=== PATIENT | female | born 1950 | race Caucasian/White ===

== ENCOUNTER → 2018-03-16 14:12 | Outpatient (CLI) | payer MEDICARE, BC, SELFPAY ==
[2018-03-16 14:28] LABS: RBC Urine None Seen (0-5/HPF)
[2018-03-16 15:31] LABS: BUN Creatinine Ratio 18.8 (6-22); Blood Urea Nitrogen 15 mg/dL (7-17); Calcium 9.5 mg/dL (8.4-10.2); Carbon Dioxide 28 mmol/L (22-32); Chloride 102 mmol/L (98-107); Estimated Glomerular Filt Rate > 60.0 mL/min (>60); Glucose 94 mg/dL (80-110); HEMOLYSIS < 15 (0-50); Hemoglobin A1C% w Est Avg Glu 5.3 % (4.0-6.0); Potassium 3.8 mmol/L (3.4-5.1); Sodium 142 mmol/L (137-145)
[2018-03-16 15:39] LABS: Appearance Urine UA CLEAR; Bilirubin Urine UA NEGATIVE (NEGATIVE); Color Urine UA YELLOW; Glucose Urine UA NEGATIVE (Normal); Ketones Urine UA NEGATIVE (NEGATIVE); Leukocyte Esterase Urine UA NEGATIVE (NEGATIVE); Nitrite Urine UA NEGATIVE (Negative); Occult Blood Urine UA NEGATIVE (Negative); Protein Urine UA NEGATIVE (Negative); Specific Gravity Urine UA 1.025 (1.000-1.035); Urobilinogen Urine UA 0.2 E.U./dL (0.2); pH Urine UA 5.5 (4.5-8.0)
[2018-03-16 15:59] LABS: Add Manual Diff / Slide Review NO; Basophils Percent Auto 0.5 % (0-2); Eosinophils Percent Auto 0.4 % (2-4); Hematocrit 44.4 % (36-46); Hemoglobin 14.9 g/dL (12.0-16.0); Lymphocytes Percent Auto 23.8 % (25-40); Mean Corpuscular HGB Conc 33.4 % (30-36); Mean Corpuscular Volume 86.9 fL (80-100); Monocytes Percent Auto 7.7 % (3-14); Neutrophils Absolute Auto 3500 /uL (3000-5900); Neutrophils Percent Auto 67.6 % (50-75); Platelet Count 238 X10^3/uL (150-400); Red Blood Cell Count 5.12 X10^6/uL (4.0-5.2); Red Cell Distribution Width 14.8 % (11.6-14.8); White Blood Cell Count 5.2 X10^3/uL (4.5-11.0)
[2018-03-16 16:26] LABS: Amorphous Sediment Urine 1+; Bacteria Urine Few (2-10); Squamous Epithelial Cell Urine 5-10 /HPF; WBC Urine 1-5/HPF (0-5/HPF)
[2018-03-16 16:27] LABS: Culture Indicated Urine Cult Not Indicated; Mucus Urine 1+ (Negative)
== END ==
PROVIDERS: PCP Family Medicine; Visit Provider Orthopaedic Surgery
DX: Z01.818 Encounter for other preprocedural examination (principal); Z01.812 Encounter for preprocedural laboratory examination; N39.9 Disorder of urinary system, unspecified; Z13.1 Encounter for screening for diabetes mellitus
CPT/HCPCS: 36415; 80048; 81001; 83036; 85025; 93005; 93010

== ENCOUNTER → 2018-04-17 09:01 | Outpatient (CLI) | payer MEDICARE, BC, SELFPAY ==
--- NOTE | 2018-04-17 13:36 | PM.TREADMILL ---
Cardiac Stress Test Report Referral & Results Date Patient Seen: 04/17/18 Requesting provider: Lexx Woodward Indication: Abnormal resting ECG Procedure Note: After both written and verbal informed consent the patient had an IV started by the diagnostic imaging RN and then was hooked up to the treadmill monitoring system. The patient was placed on the treadmill at 1 mile an hour with no elevation and was then injected with the Mary scan material. The Cardiolite was then immediately administered. The patient spent an additional 2-3 minutes on the treadmill before being returned to the [facility] in the supine position. The patient had a normal response to all infused materials. Impression: Normal response to infuse materials Please see perfusion imaging for details regarding possible ischemia Please note: Actual ECG tracings can be found in the PACS system.
--- NOTE | 2018-04-18 06:38 | DI.NM.S_ITS ---
DATE OF SERVICE: 04/17/2018 PROCEDURE: Pharmacologic perfusion study. INDICATIONS: Abnormal EKG suggestive of anterior wall, inferior wall myocardial infarction ([place]); hyperlipidemia; family history of coronary artery disease. RADIOPHARMACEUTICAL: 25.2 mCi of technetium-99 Myoview IV was injected at stress, and 12.0 mCi of technetium-99 Myoview IV was injected at rest. CARDIAC STRESS: The patient underwent IV Lexiscan perfusion study under the supervision of an attending staff using standard protocol. The patient remained hemodynamically stable. No significant symptoms were reported. Baseline rhythm was sinus with diffuse low-voltage complexes, poor R-wave progression, QS complexes in Lead III and aVF, an RSR' complex in V1. Stress EKG did not reveal any obvious inducible ischemic changes. There were no new significant arrhythmias. RAW DATA: There was significant breast shadow seen. The patient's weight is 212 pounds. GATED STUDY: Stress LV ejection fraction was 87%. I do not see any obvious wall motion abnormalities. Resting end-diastolic volume was 72 mL. No transient ischemic dilatation. TID ratio is 1.08, which is within normal limits. Lung/heart ratio is 0.24, which is within normal limits. PERFUSION STUDY: Stress supine and resting supine images revealed a small-sized mildly decreased perfusion of the distal anterior lateral wall, which got completely resolved during prone images, suggestive of tissue attenuation artifact. CONCLUSION: This is a normal myocardial perfusion study with evidence of tissue attenuation artifact which got resolved during prone images. LV function is preserved. No wall motion abnormalities. The patient's weight is 212 pounds. During raw data, significant breast shadow was seen. Most likely, this breast shadow is responsible for abnormal EKG changes with diffuse low-voltage complexes and poor R-wave progression. QS complexes seen in Lead III, aVF; however, on perfusion scan there is no infarction. As far as perfusion scan is concerned, this is a low-risk myocardial perfusion scan. Alise David - MARCELA/addis/ts doc#: [id number]/job#: [id number] dd: 04/17/2018 16:34:00 dt: 04/18/2018 06:17:00 DICTATING MD/COPIES TO: Liu Garcia MD COPIES MNE: MARYCARMEN
== END ==
PROVIDERS: PCP Family Medicine; Visit Provider Family Medicine
DX: R94.31 Abnormal electrocardiogram [ECG] [EKG] (principal); E78.5 Hyperlipidemia, unspecified; Z82.49 Family history of ischemic heart disease and other diseases of the circulatory system
CPT/HCPCS: 78452; 93016; 93017; 93018; A9502; J2785

== ENCOUNTER → 2018-06-22 10:43 | Outpatient (CLI) | payer MEDICARE, BC, SELFPAY ==
[2018-06-22 10:54] LABS: RBC Urine None Seen (0-5/HPF)
[2018-06-22 11:29] LABS: Hematocrit 43.2 % (36-46); Hemoglobin 14.3 g/dL (12.0-16.0); Mean Corpuscular HGB Conc 33.2 % (30-36); Mean Corpuscular Hemoglobin 28.7 PG (26-34); Mean Corpuscular Volume 86.4 fL (80-100); Platelet Count 210 X10^3/uL (150-400); Red Cell Distribution Width 14.5 % (11.6-14.8)
[2018-06-22 11:38] LABS: Hemoglobin A1C% w Est Avg Glu 5.2 % (4.0-6.0)
[2018-06-22 12:01] LABS: BUN Creatinine Ratio 26.7 (6-22); Blood Urea Nitrogen 16 mg/dL (7-17); Calcium 9.5 mg/dL (8.4-10.2); Carbon Dioxide 26 mmol/L (22-32); Chloride 102 mmol/L (98-107); Estimated Glomerular Filt Rate > 60.0 mL/min (>60); Glucose 73 mg/dL (80-110); HEMOLYSIS < 15 (0-50); Potassium 4.3 mmol/L (3.4-5.1); Sodium 138 mmol/L (137-145)
[2018-06-22 12:24] LABS: Appearance Urine UA CLEAR; Bilirubin Urine UA NEGATIVE (NEGATIVE); Color Urine UA YELLOW; Glucose Urine UA NEGATIVE (Negative); Ketones Urine UA NEGATIVE (NEGATIVE); Leukocyte Esterase Urine UA NEGATIVE (NEGATIVE); Nitrite Urine UA NEGATIVE (Negative); Occult Blood Urine UA NEGATIVE (Negative); Protein Urine UA NEGATIVE (Negative); Specific Gravity Urine UA 1.025 (1.000-1.035); Urobilinogen Urine UA 0.2 E.U./dL (0.2); pH Urine UA 5.5 (4.5-8.0)
[2018-06-22 12:33] LABS: Bacteria Urine Occasional (0-1); Culture Indicated Urine Cult Not Indicated; Squamous Epithelial Cell Urine 1-5 /HPF; WBC Urine 0-1/HPF (0-5/HPF)
== END ==
PROVIDERS: PCP Family Medicine; Visit Provider Orthopaedic Surgery
DX: N39.0 Urinary tract infection, site not specified (principal); R73.9 Hyperglycemia, unspecified; Z01.818 Encounter for other preprocedural examination
CPT/HCPCS: 36415; 80048; 81001; 83036; 85027

== ENCOUNTER 2018-07-08 09:30 | Observation (INO) | payer MEDICARE, BC, SELFPAY ==
[2018-07-01 10:47] VITALS: BMI 36.0
[2018-07-07] VITALS (15 sets, daily range): BP systolic 118–145; BP diastolic 60–98; PULSE 75–97; RESP 8–18; TEMP 36.2–36.8; O2SAT 89–98; BMI 35.9
--- NOTE | 2018-07-07 06:00 | DI.RAD.S_ITS ---
PROCEDURE: XR KNEE RT 1TO2V INDICATIONS: prosthesis placement TECHNIQUE: 2 view(s) of the knee acquired. COMPARISON: [facility], CR, XR KNEE ARTHRITIC SERIES , 01/07/2018, 9:44. FINDINGS: Expected postoperative changes are present related to a total right knee arthroplasty. The metallic prosthetic components appear to be properly seated without evidence of a periprosthetic fracture or obvious periprosthetic lucency. Expected post surgical changes within the overlying soft tissues are present there is a soft tissue air, edema, and fluid. A surgical drainage catheter is evident overlying the anterior margin of the knee. No unexpected radiopaque foreign bodies are evident. IMPRESSION: Expected post surgical changes related to a total right knee arthroplasty. Dictated by: Cheo Diaz M.D. on 07/07/2018 at 10:39 Approved by: Cheo Diaz M.D. on 07/07/2018 at 10:41
--- NOTE | 2018-07-07 07:05 | PC.NURSE ---
Day shift: Pt not on the AC unit at this time.
[2018-07-07] MEDS: VANCOMYCIN 1,000 MG/200 ML FROZ.PIGGY 200 MG IV (07:07)
[2018-07-07] MEDS: LACTATED RINGERS 1,000 ML 42 ML IV ×2 (07:08→09:47)
[2018-07-07] MEDS: CELECOXIB 200 MG CAPSULE PO (07:28)
[2018-07-07] MEDS: PREGABALIN 75 MG CAPSULE PO (07:29)
[2018-07-07] MEDS: ACETAMINOPHEN 325 MG TABLET 975 MG PO ×3 (07:29→20:27)
[2018-07-07] MEDS: LOPERAMIDE 2 MG CAPSULE PO (07:39)
--- NOTE | 2018-07-07 07:57 | PM.PREOP ---
Pre-operative Note Interval Note History & Physical reviewed/Exam performed by Physician: Yes Changes to H&P: No
--- NOTE | 2018-07-07 08:02 | P.OP_ITS ---
Operative Date/Time/Diagnoses Date of procedure: 07/07/18 Time of procedure: 07:58 Pre-op diagnosis: right knee OA Post-op diagnosis: same Procedure & Clinicians Procedure: right total knee replacement Same procedure as scheduled: Yes Indications: The patient has had progressively worsening right knee pain with radiographic changes consistent with arthritis. Non-operative management has failed and the patient has requested total knee replacement. The risks, benefits and alternatives to surgery were discussed with the patient prior to proceeding. Risks discussed included, but were not limited to, failure to relieve pain, stiffness, infection, nerve damage, deep venous thrombosis, pulmonary embolism, stroke, coma, heart attack, permanent paralysis and , as well as the potential need for eventual revision of the prosthetic. Surgeon: Janelle Jacques Fixing Carpenter: Saray Johnson Anesthesia Type: Spinal and Sedation Operative Notes Findings: severe patella femoral OA, good stability Closure Type: primary Specimen(s): none sent Prosthetic devices, grafts, tissues, transplants, or devices: jacques and nephew evens BCS2 femur 5, tibia 4, +9 poly, 32x7.5 patella Applied: drain(s) Estimated Blood Loss (mL): 250 Blood products transfused: none Tourniquet time (min): 80 Procedure in detail: The patient was seen in the pre-operative area, where the patient identified the right knee as the operative site and this was marked with my initials. The patient received pre-operative antibiotics, and was taken to the operating room and placed on the operative table in the supine position. After satisfactory anesthesia, a time study technician out was performed. The right leg was encircled with a tourniquet about the proximal thigh, and the leg was prepared from the toes to the tourniquet with ChloroPrep in the usual fashion and draped through sterile drapes. The leg was elevated and exsanguinated with Eschmark bandage and the tourniquet inflated to [250] mmHg pressure. The knee was approached through an approximately 18 cm incision centered over the patella and carried into the knee through a medial parapatellar arthrotomy. A portion of the medial and lateral meniscus was resected. Soft tissue was carefully mobilized around the patella the patella was measured with a caliper. Bone was resected from the patella and the patellar height was reconstituted with up an appropriate sized patellar component. A cover was then placed on the patella. A small amount of additional medial and lateral meniscus was resected. The distal femur was cut at 5?. A [+2] cut was used. It looked like an appropriate distal femoral cut and the cut was made without difficulty. An extramedullary guide was used for the tibial cut. 10 mm was resected off the least affected side.The tibia was prepared. The rotation was assessed. The patient was placed in extension residual medial and lateral meniscus as well as any residual bone was carefully resected. [No] additional tibia was resected. Hemostasis was achieved especially posteriorly. Additional local was injected into the posterior capsule. The extension gap was assessed and additional releases for gap balancing were performed as necessary. It was checked with the gap rotary drill operator helper. The femoral component was trial was placed and the notch was finished. The rotation was assessed and the appropriate size femoral guide was placed on the distal femur and finishing cuts were made. There was no evidence of notching. The anterior, posterior and chamfer cuts were then made. The posterior osteophytes and soft tissues were then removed. The posterior capsule was injected with part of a mixture of 60 ml 0.25% Marcaine mixed with 20 ml Exparel for post operative pain control. The remainder of this mixture was injected into the capsule and subcutaneous tissues during cement curing.l tibial and femoral components were then placed and the knee placed through a range of motion. Range of motion was [0-130], with good stability throughout the range. The trials were then removed, and the tibia was finished. The bone was prepared with pulsatile lavage, and dried with a sponge. Cement was applied and the final prosthetics placed. Excess cement was removed during and after cement curing. A brief Betadine soak was performed. After confirming there was no extruded cement posteriorly, the final tibial insert was placed. The knee was copiously irrigated and the tourniquet deflated. Hemostasis was obtained with the bovie. A drain was placed and brought out superolaterally. The capsule was closed with interrupted nonabsorbable suture. The subcutaneous layer was closed with barbed sutures, and the skin with a running 3-0 V-Lock suture and Surgical glue. An Aquacel Ag dressing was applied and the patient was taken to recovery having tolerated the procedure well. Complications: none Condition: stable Disposition: Acute Care Plan for aftercare: The patient will be maintained on a standard total knee replacement protocol with weight bearing as tolerated. The patient will receive Lovenox and sequential compression devices for DVT prophylaxis. The patient will be discharged home when safe for the home environment.
[2018-07-07] MEDS: CEFAZOLIN 2 GM/100 ML FROZ.PIGGY IV ×2 (08:23→15:49)
--- NOTE | 2018-07-07 08:45 | SUR.OPER ---
Supine on padded OR bed. Pillow under head, arms secured on padded armboards <90 degree abduction. Safety belt across torso. Non-operative leg secured with tape over blanket over lower leg. Operative leg secured in DeMayo/Joseph positioner. Foam padded brace at thigh of operative leg.
[2018-07-07] MEDS: BUPIVACAINE 0.25% W/ EPI 50 ML VIAL 60 ML INJ (08:53)
[2018-07-07] MEDS: BUPIVACAINE LIPOSOME 266 MG/20 ML VIAL INJ (08:53)
[2018-07-07] MEDS: TRANEXAMIC ACID 1,000 MG VIAL 1000 MG INJ ×2 (08:54→10:36)
[2018-07-07] MEDS: POVIDONE-IODINE 15 ML, SODIUM CHLORIDE 0.9% 250 ML TOP (08:56)
--- NOTE | 2018-07-07 08:56 | CM.DANOTE ---
Addendum entered by Serena Diaz LPN 07/07/18 10:10: copy of scanned H&P is attached to CM/DCP worksheet Original Note: Discharge Planning/Care Management DCP: assessment: case received, EMR reviewed and went to room to check in with pt. Pt is still in surgery. Pt is a 68 year old female who admitted early this morning for a planned R TKA. Payer: Medicare and [facility]. Surgeon: DR. Chelsy Birmingham Admission status: still in review by UR RN Anticipate PT will be working with pt post op. Note that her pre-op plan confirms that she lives with her Pasha in [place]. PCP: Lexx Woodward P: DCP team will follow post surgery and after pt see's PT to assist with d/c issues and options. CM Discharge Assessment Start: 07/07/18 08:55 Freq: Status: Active Protocol: Document 07/07/18 08:55 ITV (Rec: 07/07/18 08:56 ITV [id number]) Discharge Planning Assessment Advance Directives? Yes History Provided By Medical Record Prior Living Arrangements House Household Members spouse Whiteboard Updated in Patient Room with Yes name and ext. # of Security Management Specialist Review Status In Process Next Review Type Continued Stay Review Pre-Anesthesia Assessment Start: 04/06/18 12:48 Freq: Status: Active Protocol: Document 07/01/18 10:47 CAB (Rec: 04/06/18 13:01 VLJ [id number]) Pre-Anesthesia Assessment Patient Also Known As (AKDionicio) Joellen Patient Information Reviewed Via Phone Assessment Assessment Completed With Patient Diagnostic Results BMP/CMP CBC EKG Other Comment A1c. Labs @ 03/16/18, ECG @ [facility] scanned to record, prior ECGs @ Primary Care Provider Lexx Woodward Seen Specialist in Last 12 Months Yes Specialist Seen Orthopedist Heel Splitter Comment PCP note 03/27/18 scanned to record Primary Language Arabic Blood Bank Laboratory Technologist Required No Height 162.56 cm Weight 95.254 kg Body Mass Index (BMI) 36.0 Hearing Ability Normal Visual Assist Glasses Dentition Type Teeth, Natural Present Dental Implants Barriers to Learning None Other Aids No Hx Anesthesia Reactions Yes: Been told I need a little more and I get PVCs Hx Family Anesthesia Reaction No Hx Malignant Hyperthermia No Hx Blood Transfusions No Anesthesia Review Requested No alcohol intake current alcohol intake frequency a few times a week Smoking Status Former smoker how long ago did patient quit smoking Quit 1970 Substance Use Type does not use Pain Present Pain Reported Musculoskeletal Symptoms Abnormal Gait Arthralgias Back Pain Difficulty Walking Joint Pain Muscle Weakness History of Falling (Recent or History of Yes ) Patient is completely paralyzed or No completely immobile Mental Status Oriented to own ability Is patient on oxygen? No Does patient have MILLS/SOB No Hx Sleep Apnea No Currently Taking a Beta Dwayne No Can You Climb a Flight of Stairs Without Yes SOB Hx Chest Pain No Hx SOB No Hx Syncope or Dizziness No Anti-Coagulant Therapy No Has a Head Porter No Cardiac Testing Yes: Stress test @[facility] 04/17/18- normal study Hx Pacemaker/ICD No Pacemaker Rep Required? No Diet Type At Home Regular dysphagia No Bladder Pattern Nocturia Urgency Urinary Catheter Present No Hx Urinary Self Catheterization No Diabetes No HgbA1C 5.3 Date 03/16/18 Patient No Lactating No Hx Drug Resistant Organism No Presence of External or Internal Medical No Devices Have you traveled outside the [facility] in the last 30 days? Comment [place] 05/24/18-06/07/18 Marital Status Lives With spouse Prior Living Arrangements House Number of Floors (Floors) Two Floors Support System Sibling(s) Spouse Does the Patient Have Assistance After Yes Surgery Patient Discharge Plan Description Return Home Comment Pt advised 1-3 night length of stay per surgeon's office Feels Safe in Current Environment Yes Been Physically Hurt or Threatened By a No Person in Current Environment Do you have thoughts of harming yourself None or others? Are you currently considering suicide? No Do you have a plan to hurt yourself or No Plan others? Do You Have Any Spiritual Beliefs That No May Affect Your HC Choices? Do You Have Any Cultural Practices That No May Affect Your HC Choices? Spiritual Referral None Comment epi Who Can We Speak to About Patient's Care Family, friends Identifying Code for Release of Patient Declines to issue Information Health Care Proxy/Next of Kin Pasha () Health Care Proxy Emergency Contact Name Pasha () Emergency Contact Advance Directives? Yes Advance Directives on File No Requested Patient Bring Advanced Yes Directives DOS Power of Manager Strategy & Account Yes Power of Manager Strategy & Account Name aPsha () Power of Manager Strategy & Account PAC Instructions Do not shave/clip surgical site Durable medical equipment Medications to take/avoid Nasal antibiotic No ETOH/petroleum product on skin DOS NPO Post-op transportation Pre-surgical wash Sturdy shoes/comfortable clothes Do not bring valuables and remove jewelry
[2018-07-07] MEDS: HYDROMORPHONE 2 MG INJ 0.5 MG IV ×2 (10:56→11:11)
[2018-07-07] MEDS: hydrOXYzine 50 MG/ML INJ 25 MG IM (10:59)
--- NOTE | 2018-07-07 11:18 | SUR.PHASEI ---
Report called to Linda.
--- NOTE | 2018-07-07 11:47 | SUR.PHASEI ---
Pt transferred to the floor. VS stable. Drsg checked by RN. IV saline locked. Belongings bag with patient.
[2018-07-07] MEDS: OXYCODONE IR 10 MG TABLET PO (12:07)
[2018-07-07] MEDS: LACTATED RINGERS 1,000 ML 125 ML IV ×2 (12:08→20:24)
[2018-07-07] MEDS: HYDROMORPHONE 0.5 MG INJ IV ×2 (12:13→22:06)
--- NOTE | 2018-07-07 12:20 | PC.NURSE ---
Day shift: Pt on unit at approx 1150. Oriented to room and call light. Spouse at bedside for support. Telephone order from Dr Birmingham for increase PO oxycodone and added 0.5 mg IV Dilaudid for pain. Pt also having muscle spasms. Roc is CDI. Andrew-vac clamped and will be unclamped soon. Pt's meds sent to pharmacy.
--- NOTE | 2018-07-07 15:48 | PT.IIE ---
Current Diagnoses Unilateral primary osteoarthritis, right knee (07/07/18) Surgery Performed Operation Date: 07/07/18 07:45 Actual Procedures p Total Knee Arthroplasty(Right) - Janelle Birmingham MD Surgical History (Last Updated 07/01/18 @ 11:25 by Destini Lafleur, RN) History of arthroplasty of left knee (Acute) History of bilateral carpal tunnel release (Acute) History of incision and drainage (Acute) Hx of appendectomy (Acute) Hx of arthroscopy of left knee (Acute) Hx of hemorrhoidectomy (Acute ~2012) Medical History (Last Updated 07/01/18 @ 11:25 by Destini Lafleur RN) BCC (basal cell carcinoma) (Acute) Former smoker (Acute) Hepatitis A (Acute ~1979) Infertility (Acute) SCC (squamous cell carcinoma) (Acute) Abnormal EKG (Acute) Alopecia (Acute) Dermatitis (Acute) Diverticulitis (Acute ~03/2016) GERD (gastroesophageal reflux disease) (Acute) Headache, migraine (Acute) Hemorrhoids (Acute) Hip pain, right (Acute) History of bronchitis (Acute) Hyperlipidemia (Acute) Hyponatremia (Acute) Knee pain, right (Acute) Low back pain (Acute) Menopausal and postmenopausal disorder (Acute) Nondisplaced fracture of right tibial tuberosity (Acute) Osteoarthritis (Acute) Palpitations (Acute) Pneumonia (Acute ~07/04/16) Vaginitis (Acute) Vitamin D deficiency (Acute) Physical Therapy Inpatient Evaluation/Re-Eval M1 PT/OT-IP Prior Functional Status Start: 07/07/18 15:48 Freq: NEEDED Status: Active Protocol: Document 07/07/18 15:48 DL (Rec: 07/07/18 15:53 DL [id number]) Medical Review Prior Functional Status Medical History Reviewed Yes Diet/Fluid Consistency Regular Communication WNL Mobility and Gait Independent Activities of Daily Living and IADL's Independent Prior Functional Level (Other details) active with kayaking Social History Household Members spouse Living Arrangements House Number of Floors (Floors) Two Floors Number of Stairs To Enter/Railing? 13 with rail Additional Social History Comment her steps are outside between the lower level that has guest bedroom the upper level that has the master bedroom/kitchen /living room. She plans to stay on the lower level at discharge to avoid the steps ( will not be able to go to the kitchen). The lower level has a full bathroom. M2 PT-IP Current Condition Start: 07/07/18 15:48 Freq: NEEDED Status: Active Protocol: Document 07/07/18 15:48 DLM (Rec: 07/07/18 16:32 DLM [id number]) Physical Therapy Current Condition Current Condition Evaluation Date 07/07/18 Treatment Diagnosis right TKA, impaired gait Onset Date 07/07/18 Weight Bearing Status Weight Bearing Status Weight Bear as Tolerated M3 PT-IP Subjective Start: 07/07/18 15:48 Freq: NEEDED Status: Active Protocol: Document 07/07/18 15:48 DLM (Rec: 07/07/18 15:53 DLM [id number]) Subjective Physical Therapy Visit Type Type Initial Evaluation Visit Start Time 15:18 Visit Stop Time 15:48 Total Visit Minutes 30 Number of INSULATION MECHANIC Visits 0 Physical Therapy Visit Comments Patient Comments She feels so much better than she did after her left TKA 20 years ago. Her pain is better than it was earlier today, she is not aware of having any numbness Patient Goals discharge home with her Spouse to assist her Therapy Pain Assessment Pain When Pain Assessed After Treatment Pain Present Pain Present Denied Pain M4 PT-IP Mobility and Gait Start: 07/07/18 15:48 Freq: NEEDED Status: Active Protocol: Document 07/07/18 15:48 DLM (Rec: 07/07/18 16:32 DLM [id number]) PT-Bed Mobility Assessment Rolling Level of Assist Standby Assistance Supine to Sit Supine to Sit Standby Assistance Sit to Supine Sit to Supine Standby Assistance Scooting Scooting to Edge of Bed Independent PT-Transfer Assessment Sit to and From Stand Sit to and from Stand Contact Guard Assistance Use of Upper Extremities Equipment Transfer Assistive Device Gait Belt Front Wheeled Walker Transfers Transfer Destination Bedside Commode Transfer Technique Stand Step Pivot Transfer Ability Level of Assist Contact Guard Assistance Use of Upper Extremities Comments Mobility Comments pt incontinent of urine while getting up to bedside commode with no awareness, also noted the bed is wet Gait Assessment Comments Gait Comments pt requested back to bed after being up on bedside commode Stair Climbing Assessment Comments Stair Climbing Comments pt does not need to do stairs when she gets home, will defer to out-pt PT PT-Balance Assessment Sitting Balance and Reactions Static Sitting Balance Ability Normal Dynamic Sitting Balance Ability Normal Standing Balance and Reactions Static Standing Balance Ability Good Dynamic Standing Balance Ability Good Device Used FWW M5 PT-IP Objective Assessments Start: 07/07/18 15:48 Freq: NEEDED Status: Active Protocol: Document 07/07/18 15:48 DLM (Rec: 07/07/18 16:32 DLM [id number]) Orientation Orientation/Cognition Level of Alertness Alert Orientation Name Age Birthday Month Date Year Day of Week Place Situation Language Function Ability No Deficits Noted Safety Awareness Understands Safety Issues Memory Description No Deficits Noted Comments reinforced need to have staff assistance when she gets up to decrease fall risks, bed alarm is on Gross Range of Motion Upper Extremity ROM Assessment Within Functional Limits Lower Extremity ROM Assessment Right Impaired Impairments post-op impairments right knee , tolerated 90 degrees of flexion when sitting up Strength Upper Extremity Strength Assessment Within Functional Limits Lower Extremity Strength Assessment Right Impaired Hip able to complete SLR with extensor lag Knee seated knee ext 2+/5 Ankle DF 4/5 Coordination Assessment Gross Coordination Gross Coordination WNL Sensation Assessment Sensation Sensation Description Numbness Comments Sensation Comments saddle numbness reported, pt unaware that she is urinating Muscle Tone Muscle Tone WNL Yes M6 PT-IP Treatment Start: 07/07/18 15:48 Freq: NEEDED Status: Active Protocol: Document 07/07/18 15:48 DLM (Rec: 07/07/18 16:32 DL [id number]) Physical Therapy Treatment Exercises Exercises Ankle Pumps Quad Sets Education Education Provided Weight Bearing Status Post-Op Packet Safety M7 PT-IP Assessment and Plan Start: 07/07/18 15:48 Freq: NEEDED Status: Active Protocol: Document 07/07/18 15:48 DLM (Rec: 07/07/18 16:32 DL [id number]) PT Summary Assessment and Plan Potential Rehabilitation Potential Excellent Status of Condition at Evaluation Evolving Summary Impairments Pain ROM Strength Balance Bed Mobility Transfers Gait Activity Tolerance Assessment Summary Alise is alert and willing to get up with Physical Therapy. She transfered to the bedside commode. She was unable to urinate while on the commode but was noted to be incontinent of urine during the transfer and her bed was wet. Pt and bed were changed while she was up. Pt requested back to bed at this time. Her pain is well controlled at this time. Will plan for discharge home with her Spouse to assist her as she progresses. Goals Bed Mobility Goal Independent Transfer Goal Independent Front Wheeled Walker Gait Goal Independent Front Wheel Walker Gait Distance 150 feet Days to Meet Goals 2 Frequency of Treatment Frequency Of Treatment Twice a Day Treatment Plan Physical Therapy Treatment Plan Bed Mobility Training Transfer Training Gait Training Therapeutic Exercise Balance Retraining Post Op Education Discharge Planning Hot or Cold Pack Recommendations To Nursing Amount of Assist Needed 1 Person Assist Discharge Recommendations PT Discharge Recommendations Home with Assistance Outpatient PT
[2018-07-07] MEDS: OXYCODONE IR 5 MG TABLET PO (19:56)
[2018-07-07] MEDS: PRAVASTATIN 20 MG TABLET PO (20:27)
[2018-07-07] MEDS: ASPIRIN EC 81 MG TABLET PO (20:27)
[2018-07-08] VITALS (7 sets, daily range): BP systolic 109–129; BP diastolic 65–77; PULSE 64–81; RESP 12–18; TEMP 36.1–36.6; O2SAT 92–97
[2018-07-08] MEDS: CEFAZOLIN 2 GM/100 ML FROZ.PIGGY IV (00:05)
[2018-07-08] MEDS: LACTATED RINGERS 1,000 ML 125 ML IV (04:25)
[2018-07-08 05:45] LABS: Hematocrit 37.4 % (36-46); Hemoglobin 12.5 g/dL (12.0-16.0)
[2018-07-08] MEDS: ACETAMINOPHEN 325 MG TABLET 975 MG PO ×3 (07:50→19:18)
[2018-07-08] MEDS: CHOLECALCIFEROL (VITAMIN D3) 1,000 UNIT TABLET 1000 UNIT PO (07:50)
[2018-07-08] MEDS: ASPIRIN EC 81 MG TABLET PO ×2 (07:50→20:11)
[2018-07-08] MEDS: OXYCODONE IR 5 MG TABLET PO ×4 (07:51→23:57)
--- NOTE | 2018-07-08 10:11 | PM.PNPO.1 ---
Subjective Date Patient Seen: 07/08/18 Time Patient Seen: 10:11 Interval history: Hospital day 2, postop day 1 following right total knee arthroplasty by Dr. Birmingham. Patient remained stable postoperatively. She had very limited PT yesterday. Hemovac note 60 mL/shift. She is noting more pain today. she is not sure whether she is ready to be discharged today. she is a [facility]. she does have physical therapy scheduled at [facility]. She does have stairs at home but plans to live on 1 level for period of time. will be taking care of her. Exam Vital Signs (past 8 hours): - 07/08/18 04:12 07/08/18 07:19 07/08/18 09:26 Temperature 97.7 F 97.4 F L Pulse Rate 79 74 81 Respiratory Rate 17 18 12 Blood Pressure 123/73 129/69 Pulse Oximetry 95 95 94 Oxygen Delivery Method Room Air Oxygen Flow Rate 0 Narrative Exam Narrative: Alert, oriented no acute distress resting in bed. legs. Ricky wrap an Aquacel dressing to right knee is dry without drainage or inflammation. Hemovac in place. No calf pain or swelling. Pulses symmetrical. Objective Labs Result Diagrams: 07/08/18 05:30 Labs: Laboratory Results - last 24 hr 07/08/18 05:30 Hgb 12.5 Hct 37.4 Assessment & Plan Post-op Postoperative Procedures Operation Date: 07/07/18 07:45 Actual Procedures Side Surgeon p Total Knee Arthroplasty Right Janelle Birmingham MD Plan: Will have patient work with PT more today. will wait for decrease in Hemovac drainage before DC. Um work on pain control today. I anticipate discharge home tomorrow if she is stable.
--- NOTE | 2018-07-08 10:30 | PT.IPTN ---
Current Diagnoses Unilateral primary osteoarthritis, right knee (07/07/18) Surgery Performed Operation Date: 07/07/18 07:45 Actual Procedures p Total Knee Arthroplasty(Right) - Janelle Birmingham MD Physical Therapy Treatment Note M2 PT-IP Current Condition Start: 07/07/18 15:48 Freq: NEEDED Status: Active Protocol: Document 07/07/18 15:48 DLM (Rec: 07/07/18 16:32 DLM [id number]) Physical Therapy Current Condition Current Condition Evaluation Date 07/07/18 Treatment Diagnosis right TKA, impaired gait Onset Date 07/07/18 Weight Bearing Status Weight Bearing Status Weight Bear as Tolerated M3 PT-IP Subjective Start: 07/07/18 15:48 Freq: NEEDED Status: Active Protocol: Document 07/08/18 11:32 GGD (Rec: 07/08/18 11:41 GGD [email or web address]) Subjective Physical Therapy Visit Type Type Treatment Note Visit Start Time 10:00 Visit Stop Time 10:30 Total Visit Minutes 30 Number of VAMP STRAP IRONER Visits 1 Physical Therapy Visit Comments Patient Comments Pt states she is feeling better. Therapy Pain Assessment Pain When Pain Assessed During Mobility Pain Present Pain Present Pain Reported Location Rt Knee Intensity 4 Scale Used Numeric (1 - 10) Pain Management Techniques Apply Cold Re-positioning Timing of Activity with Medications M4 PT-IP Mobility and Gait Start: 07/07/18 15:48 Freq: NEEDED Status: Active Protocol: Document 07/08/18 11:32 GGD (Rec: 07/08/18 11:41 GGD [email or web address]) PT-Bed Mobility Assessment Rolling Level of Assist Standby Assistance Supine to Sit Supine to Sit Standby Assistance Sit to Supine Sit to Supine Standby Assistance Scooting Scooting to Edge of Bed Independent PT-Transfer Assessment Sit to and From Stand Sit to and from Stand Standby Assistance Use of Upper Extremities Equipment Transfer Assistive Device Gait Belt Front Wheeled Walker Transfers Transfer Destination Bed Transfer Ability Level of Assist Standby Assistance Use of Upper Extremities Gait Assessment Gait Gait Assistance Required: Standby Assistance Distance (Feet) 220 Able to Maintain Weight Bearing Status Yes During Gait Assistive Devices Assistive Device Front Wheeled Walker Orthotic/Prosthetic Devices or Brace: No Gait Deviations General Gait Pattern Decreased Stride Length Decreased Feet Clearance Factors Limiting Gait Function Factors Limiting Gait Function Decreased Strength Limited Range of Motion Pain M5 PT-IP Objective Assessments Start: 07/07/18 15:48 Freq: NEEDED Status: Active Protocol: Document 07/07/18 15:48 DLM (Rec: 07/07/18 16:32 DLM [id number]) Orientation Orientation/Cognition Level of Alertness Alert Orientation Name Age Birthday Month Date Year Day of Week Place Situation Language Function Ability No Deficits Noted Safety Awareness Understands Safety Issues Memory Description No Deficits Noted Comments reinforced need to have staff assistance when she gets up to decrease fall risks, bed alarm is on Gross Range of Motion Upper Extremity ROM Assessment Within Functional Limits Lower Extremity ROM Assessment Right Impaired Impairments post-op impairments right knee , tolerated 90 degrees of flexion when sitting up Strength Upper Extremity Strength Assessment Within Functional Limits Lower Extremity Strength Assessment Right Impaired Hip able to complete SLR with extensor lag Knee seated knee ext 2+/5 Ankle DF 4/5 Coordination Assessment Gross Coordination Gross Coordination WNL Sensation Assessment Sensation Sensation Description Numbness Comments Sensation Comments saddle numbness reported, pt unaware that she is urinating Muscle Tone Muscle Tone WNL Yes M6 PT-IP Treatment Start: 07/07/18 15:48 Freq: NEEDED Status: Active Protocol: Document 07/08/18 11:32 GGD (Rec: 07/08/18 11:41 GGD [email or web address]) Physical Therapy Treatment Exercises Exercises Ankle Pumps Quad Sets Heel Slides Straight Leg Raises Short Arc Quads Seated Knee Flexion/Extension M7 PT-IP Assessment and Plan Start: 07/07/18 15:48 Freq: NEEDED Status: Active Protocol: Document 07/08/18 11:32 GGD (Rec: 07/08/18 11:41 GGD [email or web address]) PT Summary Assessment and Plan Summary Assessment Summary Pt improving with mobility. She was able to progress gait. She did need cues for gait pattern and sit to stand. She was safe and stable with mobility. She is safe for home D/C when medically stable. Frequency of Treatment Frequency Of Treatment Twice a Day Treatment Plan Physical Therapy Treatment Plan Bed Mobility Training Transfer Training Gait Training Therapeutic Exercise Balance Retraining Post Op Education Discharge Planning Hot or Cold Pack Recommendations To Nursing Amount of Assist Needed 1 Person Assist Discharge Recommendations PT Discharge Recommendations Home with Assistance Outpatient PT
[2018-07-08] MEDS: OXYCODONE IR 10 MG TABLET PO ×2 (14:50→19:19)
--- NOTE | 2018-07-08 15:04 | PC.NURSE ---
HV CAME APART. ORTHO JOYCE FUNK NOTIFIED, AND NOTIFIED HAD 100CC'S OUT THIS SHIFT.. ORDER TO DC IT. 4X4 FOLDED IN 1/4THS APPLIED. PATIENT CLEARED FOR DC BY PHYSICAL THERAPY. PATIENT STATES SHE DOESN'T FEEL READY TO GO HOME TODAY. SHE IS CONCERNED ABOUT SWELLING INTO HER KNEE AFTER THE HV CAME OUT.
--- NOTE | 2018-07-08 15:58 | PT.IPTN ---
Current Diagnoses Unilateral primary osteoarthritis, right knee (07/07/18) Surgery Performed Operation Date: 07/07/18 07:45 Actual Procedures p Total Knee Arthroplasty(Right) - Janelle Birmingham MD Physical Therapy Treatment Note M2 PT-IP Current Condition Start: 07/07/18 15:48 Freq: NEEDED Status: Active Protocol: Document 07/07/18 15:48 DLM (Rec: 07/07/18 16:32 DLM [id number]) Physical Therapy Current Condition Current Condition Evaluation Date 07/07/18 Treatment Diagnosis right TKA, impaired gait Onset Date 07/07/18 Weight Bearing Status Weight Bearing Status Weight Bear as Tolerated M3 PT-IP Subjective Start: 07/07/18 15:48 Freq: NEEDED Status: Active Protocol: Document 07/08/18 15:50 GGD (Rec: 07/08/18 15:58 GGD [email or web address]) Subjective Physical Therapy Visit Type Type Treatment Note Visit Start Time 15:20 Visit Stop Time 15:50 Total Visit Minutes 30 Number of APPLICATIONS SYSTEMS ENGINEER Visits 2 Physical Therapy Visit Comments Patient Comments Pt states she having more pain . Therapy Pain Assessment Pain When Pain Assessed During Mobility Pain Present Pain Present Pain Reported M4 PT-IP Mobility and Gait Start: 07/07/18 15:48 Freq: NEEDED Status: Active Protocol: Document 07/08/18 15:50 GGD (Rec: 07/08/18 15:58 GGD [email or web address]) PT-Bed Mobility Assessment Rolling Level of Assist Standby Assistance Supine to Sit Supine to Sit Standby Assistance Sit to Supine Sit to Supine Standby Assistance Scooting Scooting to Edge of Bed Independent PT-Transfer Assessment Sit to and From Stand Sit to and from Stand Standby Assistance Use of Upper Extremities Equipment Transfer Assistive Device Gait Belt Front Wheeled Walker Transfers Transfer Destination Bed Toilet Transfer Ability Level of Assist Standby Assistance Use of Upper Extremities Gait Assessment Gait Gait Assistance Required: Standby Assistance Distance (Feet) 140 Able to Maintain Weight Bearing Status Yes During Gait Assistive Devices Assistive Device Front Wheeled Walker Orthotic/Prosthetic Devices or Brace: No Gait Deviations General Gait Pattern Decreased Stride Length Decreased Feet Clearance Factors Limiting Gait Function Factors Limiting Gait Function Decreased Strength Limited Range of Motion Pain Stair Climbing Assessment Evaluation Level of Assist On Stairs Contact Guard Assistance Devices Stair Climbing Assistive Devices Left Railing Right Railing Technique/Endurance Stair Climbing Direction Ascend and Descend Stair Climbing Technique Step to Step Number of Steps Climbed 3 Query Text: Stair Climbing Set # Repetitions (reps) 1 M5 PT-IP Objective Assessments Start: 07/07/18 15:48 Freq: NEEDED Status: Active Protocol: Document 07/07/18 15:48 DLM (Rec: 07/07/18 16:32 DLM [id number]) Orientation Orientation/Cognition Level of Alertness Alert Orientation Name Age Birthday Month Date Year Day of Week Place Situation Language Function Ability No Deficits Noted Safety Awareness Understands Safety Issues Memory Description No Deficits Noted Comments reinforced need to have staff assistance when she gets up to decrease fall risks, bed alarm is on Gross Range of Motion Upper Extremity ROM Assessment Within Functional Limits Lower Extremity ROM Assessment Right Impaired Impairments post-op impairments right knee , tolerated 90 degrees of flexion when sitting up Strength Upper Extremity Strength Assessment Within Functional Limits Lower Extremity Strength Assessment Right Impaired Hip able to complete SLR with extensor lag Knee seated knee ext 2+/5 Ankle DF 4/5 Coordination Assessment Gross Coordination Gross Coordination WNL Sensation Assessment Sensation Sensation Description Numbness Comments Sensation Comments saddle numbness reported, pt unaware that she is urinating Muscle Tone Muscle Tone WNL Yes M6 PT-IP Treatment Start: 07/07/18 15:48 Freq: NEEDED Status: Active Protocol: Document 07/08/18 15:50 GGD (Rec: 07/08/18 15:58 GGD [email or web address]) Physical Therapy Treatment Exercises Exercises Ankle Pumps Quad Sets Heel Slides Straight Leg Raises Short Arc Quads Seated Knee Flexion/Extension Education Education Provided Weight Bearing Status Post-Op Packet Safety M7 PT-IP Assessment and Plan Start: 07/07/18 15:48 Freq: NEEDED Status: Active Protocol: Document 07/08/18 15:50 GGD (Rec: 07/08/18 15:58 GGD [email or web address]) PT Summary Assessment and Plan Summary Assessment Summary Pt had increase in C/O pain, but no limit to mobility. She was able to progress gait. She was safe and stable with stair mobility. She was SBA for bed mobility and gait. Pt safe for home D/c when medically stable. Frequency of Treatment Frequency Of Treatment Twice a Day Treatment Plan Physical Therapy Treatment Plan Bed Mobility Training Transfer Training Gait Training Therapeutic Exercise Balance Retraining Post Op Education Discharge Planning Hot or Cold Pack Recommendations To Nursing Amount of Assist Needed 1 Person Assist Discharge Recommendations PT Discharge Recommendations Home with Assistance Outpatient PT
[2018-07-08] MEDS: DOCUSATE 100 MG CAPSULE PO (19:18)
[2018-07-09 03:27] VITALS: BP 145/98; PULSE 75; RESP 16; TEMP 36.2; O2SAT 94
[2018-07-09] MEDS: OXYCODONE IR 10 MG TABLET PO (03:29)
[2018-07-09 07:45] VITALS: BP 138/91; PULSE 74; RESP 18; TEMP 36.6; O2SAT 94
[2018-07-09 07:48] VITALS: BP 134/73; PULSE 74
--- NOTE | 2018-07-09 08:30 | PM.DS.1 ---
History of Present Illness Date Patient Seen: 07/09/18 Time Patient Seen: 08:31 Chief complaint: RIGHT TOTAL KNEE ARTHROPLASTY Narrative: Hospital day 3, postop day 2 following right total knee arthroplasty. patient did not feel that she was ready to go home yesterday. Did better with PT yesterday afternoon. She feels she is ready for discharge home today. pain controlled with oxycodone. Discharge Providers Date of admission: 07/07/18 06:10 Discharge Date: 07/09/18 Primary care physician: Lexx Woodward DO Consults: 07/07/18 06:00 Consult to Anesthesiology Routine Comment: Consulting Provider: Anesthesiologist Reason for consultation: Regional block for post operative pain control 07/07/18 11:42 Consult to Discharge Planning Routine Comment: Consult to Physical Therapy Evaluate & Treat Comment: home today if safe Physician Instructions: postop TKA protocol Consult to Respiratory Therapy Evaluate & Treat Comment: Physician Instructions: Evaluate and treat Discharge provider: Mayank Chadwick PA-C Summary Discharge Diagnosis: Status post right total knee arthroplasty Hospital Course: Patient brought to hospital on 07/07/2018 for above noted surgery. she remained stable postoperatively. Gradually improved with ambulation with physical therapy. Ready for discharge home today on postop day 2. Status at Discharge Cognitive/behavioral status at discharge: oriented Functional status at discharge: uses cane/walker Overall status at discharge: patient is progressing back to baseline Time Spent with Patient Less than 30 minutes Exam Vital Signs (past 8 hours): - 07/09/18 03:27 07/09/18 07:45 07/09/18 07:48 Temperature 97.2 F L 97.9 F Pulse Rate 75 74 74 Respiratory Rate 16 18 Blood Pressure 145/98 H 138/91 H 134/73 Pulse Oximetry 94 94 Oxygen Delivery Method Room Air Oxygen Flow Rate 0 Narrative Exam Narrative: Alert, oriented no acute distress resting in bed. legs. Ricky wrap an Aquacel dressing to right knee is dry without drainage or inflammation. Hemovac is DC. No calf pain or swelling. Pulses symmetrical. Objective Labs Result Diagrams: 07/08/18 05:30 Discharge Plan Discharge Plan Patient Disposition: Home Discharge comment: Discharged home after cleared by PT. Ambulate as tolerated. Discharge Med Rec/Prescriptions Prescriptions: New acetaminophen 325 mg Tablet 975 mg PO TID Qty: 0 RF: 0 aspirin 81 mg Tablet,Delayed Release (Dr/Ec) 81 mg PO BID Qty: 0 RF: 0 docusate sodium 100 mg Capsule 100 mg PO BID Qty: 0 RF: 0 oxycodone 10 mg Tablet 10 mg PO Q3HR PRN (Reason: Pain, Severe (7-10)) Qty: 40 RF: 0 hydroxyzine pamoate 25 mg capsule 25 mg PO Q6-8H MDD 4 PRN (Reason: nausea and vomiting, spasms) Qty: 20 RF: 0 Continued hydrocortisone [Proctozone-HC] 2.5 % Cream With Perineal Applicator 1 applic GA QD-BID PRN (Reason: Hemorrhoids) RF: 0 [id number]-caff [Fiorinal-Codeine #3] 59-18-981-40 mg Capsule 1 cap PO Q6H PRN (Reason: Severe Headache) RF: 0 sumatriptan succinate [Imitrex] 50 mg Tablet 25 - 50 mg PO SEEINSTR PRN (Reason: Migraine Headache) RF: 0 sumatriptan succinate [Imitrex STATdose Pen] 6 mg/0.5 mL Pen Injector 6 mg subcut SEEINSTR PRN (Reason: Migraines) RF: 0 cholecalciferol (vitamin D3) [Vitamin D3] 1,000 unit Capsule 1,000 unit PO DAILY RF: 0 Premarin 0.625 mg/gram Cream 0.5 applic VAGINAL SEEINSTR RF: 0 pravastatin 20 mg Tablet 20 mg PO SEEINSTR RF: 0 Sleep Aid (doxylamine) 25 mg Tablet 12.5 mg PO BEDTIME PRN (Reason: Insomnia) RF: 0 ibuprofen 200 mg Capsule 200 mg PO QID PRN (Reason: Pain) RF: 0 nystatin-triamcinolone 100,000-0.1 unit/g-% Cream 1 applic TOPICAL BID PRN (Reason: Rash) RF: 0 Follow up/Referrals: Lexx Woodward DO [Primary Care Provider] - Provider Discharge Instructions Diet: Diet as Tolerated Activity: Weightbearing as tolerated, elevate operative leg to help with swelling Cold/Heat Therapy: Apply ice 20 minutes at a time at least hourly while awake. Other treatments: Please refer to [facility] book for other instructions and questions Skin/Wound/Dressing Care Report to your healthcare provider any signs of infection, such as:: chills, fever, night sweats, increased pain, unusual drainage and unusual redness Dressing: Keep dressing clean, dry, and intact. May shower with it in place but no soaking. Visit Report/Discharge Packet Instructions: DI for Knee Replacement Stand Alone Forms: Surgery Discharge Visit Report Forms: Stroke Signs & Symptoms Discharge Data Primary Care Provider: Lexx Woodward Attending Provider: Janelle Birmingham Admit Date/Time: 07/07/18 06:10
[2018-07-09] MEDS: ACETAMINOPHEN 325 MG TABLET 975 MG PO (08:31)
[2018-07-09] MEDS: OXYCODONE IR 5 MG TABLET PO ×2 (08:31→12:50)
[2018-07-09] MEDS: SODIUM CHLORIDE 0.9% FLUSH 10 ML IV (08:32)
[2018-07-09] MEDS: CHOLECALCIFEROL (VITAMIN D3) 1,000 UNIT TABLET 1000 UNIT PO (08:32)
[2018-07-09] MEDS: ASPIRIN EC 81 MG TABLET PO (08:32)
[2018-07-09] MEDS: DOCUSATE 100 MG CAPSULE PO (08:32)
--- NOTE | 2018-07-09 09:56 | PM.DS.1 ---
History of Present Illness Chief complaint: RIGHT TOTAL KNEE ARTHROPLASTY Narrative: Hospital day 3, postop day 2 following right total knee arthroplasty. patient did not feel that she was ready to go home yesterday. Did better with PT yesterday afternoon. She feels she is ready for discharge home today. pain controlled with oxycodone. Discharge Providers Date of admission: 07/07/18 06:10 Discharge Date: 07/09/18 Primary care physician: Lexx Woodward DO Consults: 07/07/18 06:00 Consult to Anesthesiology Routine Comment: Consulting Provider: Anesthesiologist Reason for consultation: Regional block for post operative pain control 07/07/18 11:42 Consult to Discharge Planning Routine Comment: Consult to Physical Therapy Evaluate & Treat Comment: home today if safe Physician Instructions: postop TKA protocol Consult to Respiratory Therapy Evaluate & Treat Comment: Physician Instructions: Evaluate and treat Discharge provider: Mayank Chadwick PA-C Exam Vital Signs (past 8 hours): - 07/09/18 03:27 07/09/18 07:45 07/09/18 07:48 Temperature 97.2 F L 97.9 F Pulse Rate 75 74 74 Respiratory Rate 16 18 Blood Pressure 145/98 H 138/91 H 134/73 Pulse Oximetry 94 94 Oxygen Delivery Method Room Air Oxygen Flow Rate 0 Objective Labs Result Diagrams: 07/08/18 05:30 Discharge Plan Discharge Plan Patient Disposition: Home Discharge comment: Discharged home after cleared by PT. Ambulate as tolerated. Discharge Med Rec/Prescriptions Prescriptions: New acetaminophen 325 mg Tablet 975 mg PO TID Qty: 0 RF: 0 aspirin 81 mg Tablet,Delayed Release (Dr/Ec) 81 mg PO BID Qty: 0 RF: 0 docusate sodium 100 mg Capsule 100 mg PO BID Qty: 0 RF: 0 oxycodone 10 mg Tablet 10 mg PO Q3HR PRN (Reason: Pain, Severe (7-10)) Qty: 40 RF: 0 hydroxyzine pamoate 25 mg capsule 25 mg PO Q6-8H MDD 4 PRN (Reason: nausea and vomiting, spasms) Qty: 20 RF: 0 Continued hydrocortisone [Proctozone-HC] 2.5 % Cream With Perineal Applicator 1 applic MT QD-BID PRN (Reason: Hemorrhoids) RF: 0 [id number]-VRW-caff [Fiorinal-Codeine #3] 62-22-479-40 mg Capsule 1 cap PO Q6H PRN (Reason: Severe Headache) RF: 0 sumatriptan succinate [Imitrex] 50 mg Tablet 25 - 50 mg PO SEEINSTR PRN (Reason: Migraine Headache) RF: 0 sumatriptan succinate [Imitrex STATdose Pen] 6 mg/0.5 mL Pen Injector 6 mg subcut SEEINSTR PRN (Reason: Migraines) RF: 0 cholecalciferol (vitamin D3) [Vitamin D3] 1,000 unit Capsule 1,000 unit PO DAILY RF: 0 Premarin 0.625 mg/gram Cream 0.5 applic VAGINAL SEEINSTR RF: 0 pravastatin 20 mg Tablet 20 mg PO SEEINSTR RF: 0 Sleep Aid (doxylamine) 25 mg Tablet 12.5 mg PO BEDTIME PRN (Reason: Insomnia) RF: 0 ibuprofen 200 mg Capsule 200 mg PO QID PRN (Reason: Pain) RF: 0 nystatin-triamcinolone 100,000-0.1 unit/g-% Cream 1 applic TOPICAL BID PRN (Reason: Rash) RF: 0 Follow up/Referrals: Lexx Woodward DO [Primary Care Provider] - Provider Discharge Instructions Diet: Diet as Tolerated Activity: Weightbearing as tolerated, elevate operative leg to help with swelling Cold/Heat Therapy: Apply ice 20 minutes at a time at least hourly while awake. Other treatments: Please refer to [facility] book for other instructions and questions Skin/Wound/Dressing Care Report to your healthcare provider any signs of infection, such as:: chills, fever, night sweats, increased pain, unusual drainage and unusual redness Dressing: Keep dressing clean, dry, and intact. May shower with it in place but no soaking. Visit Report/Discharge Packet Instructions: DI for Knee Replacement Stand Alone Forms: Surgery Discharge Discharge Data Primary Care Provider: Lexx Woodward Attending Provider: Janelle Birmingham Admit Date/Time: 07/07/18 06:10
--- NOTE | 2018-07-09 11:18 | PT.IPTN ---
Current Diagnoses Unilateral primary osteoarthritis, right knee (07/07/18) Surgery Performed Operation Date: 07/07/18 07:45 Actual Procedures p Total Knee Arthroplasty(Right) - Janelle Birmingham MD Physical Therapy Treatment Note M2 PT-IP Current Condition Start: 07/07/18 15:48 Freq: NEEDED Status: Active Protocol: Document 07/07/18 15:48 DLM (Rec: 07/07/18 16:32 DLM [id number]) Physical Therapy Current Condition Current Condition Evaluation Date 07/07/18 Treatment Diagnosis right TKA, impaired gait Onset Date 07/07/18 Weight Bearing Status Weight Bearing Status Weight Bear as Tolerated M3 PT-IP Subjective Start: 07/07/18 15:48 Freq: NEEDED Status: Active Protocol: Document 07/09/18 11:10 SA (Rec: 07/09/18 11:18 SA [id number]) Subjective Physical Therapy Visit Type Type Treatment Note Visit Start Time 09:50 Visit Stop Time 10:20 Total Visit Minutes 30 Number of EXTRUDER OPERATOR Visits 3 Physical Therapy Visit Comments Patient Comments Pt reports low pain levels and feels ready to d/c home. Patient Goals Home with spouse Therapy Pain Assessment Pain When Pain Assessed During Mobility Pain Present Pain Present Pain Reported Location Rt Knee Intensity 2 Scale Used Numeric (1 - 10) Pain Management Techniques Apply Cold Re-positioning Timing of Activity with Medications M4 PT-IP Mobility and Gait Start: 07/07/18 15:48 Freq: NEEDED Status: Active Protocol: Document 07/09/18 11:10 SA (Rec: 07/09/18 11:18 SA [id number]) PT-Bed Mobility Assessment Rolling Level of Assist Standby Assistance Supine to Sit Supine to Sit Standby Assistance Sit to Supine Sit to Supine Standby Assistance Scooting Scooting to Edge of Bed Independent Scooting Up and Down in Bed Independent PT-Transfer Assessment Sit to and From Stand Sit to and from Stand Standby Assistance Equipment Transfer Assistive Device Gait Belt Front Wheeled Walker Orthotic/Prosthetic Devices or Brace: No Transfers Transfer Destination Chair Toilet Transfer Ability Level of Assist Standby Assistance Use of Upper Extremities Comments Mobility Comments Pt able to transfer safely on/ off toilwt with SBA-IND and use of FWW. Demonstrates ability to clear RLE over EOB with SUP<>Sit. Gait Assessment Gait Gait Assistance Required: Standby Assistance Distance (Feet) 200 Able to Maintain Weight Bearing Status Yes During Gait Assistive Devices Assistive Device Front Wheeled Walker Orthotic/Prosthetic Devices or Brace: No Gait Deviations General Gait Pattern Decreased Stride Length Decreased Feet Clearance Factors Limiting Gait Function Factors Limiting Gait Function Decreased Activity Tolerance Decreased Strength Comments Gait Comments Pt uses FWW safely with SBA, able to increased step length and WBing through RLE with cues and no increased pain. Stair Climbing Assessment Evaluation Level of Assist On Stairs Standby Assistance Devices Stair Climbing Assistive Devices Left Railing Right Railing Technique/Endurance Stair Climbing Direction Ascend and Descend Stair Climbing Technique Step to Step Number of Steps Climbed 3 Query Text: Stair Climbing Set # Repetitions (reps) 2 Comments Stair Climbing Comments Up/Down 3 stairs x 2 reps with step to gait pattern, SBA and min cues, no LOB or c/o increased knee pain. M5 PT-IP Objective Assessments Start: 07/07/18 15:48 Freq: NEEDED Status: Active Protocol: Document 07/07/18 15:48 DLM (Rec: 07/07/18 16:32 DLM [id number]) Orientation Orientation/Cognition Level of Alertness Alert Orientation Name Age Birthday Month Date Year Day of Week Place Situation Language Function Ability No Deficits Noted Safety Awareness Understands Safety Issues Memory Description No Deficits Noted Comments reinforced need to have staff assistance when she gets up to decrease fall risks, bed alarm is on Gross Range of Motion Upper Extremity ROM Assessment Within Functional Limits Lower Extremity ROM Assessment Right Impaired Impairments post-op impairments right knee , tolerated 90 degrees of flexion when sitting up Strength Upper Extremity Strength Assessment Within Functional Limits Lower Extremity Strength Assessment Right Impaired Hip able to complete SLR with extensor lag Knee seated knee ext 2+/5 Ankle DF 4/5 Coordination Assessment Gross Coordination Gross Coordination WNL Sensation Assessment Sensation Sensation Description Numbness Comments Sensation Comments saddle numbness reported, pt unaware that she is urinating Muscle Tone Muscle Tone WNL Yes M6 PT-IP Treatment Start: 07/07/18 15:48 Freq: NEEDED Status: Active Protocol: Document 07/09/18 11:10 SA (Rec: 07/09/18 11:18 SA [id number]) Physical Therapy Treatment Exercises Exercises Ankle Pumps Quad Sets Heel Slides Straight Leg Raises Short Arc Quads Seated Knee Flexion/Extension Education Education Provided Weight Bearing Status Post-Op Packet Safety Other Treatments Other Treatment Performed Discussed equipment pt has at home including elevated toilet seat, FWW, SPC and grab bars. Pt has no equipment needs at this time. M7 PT-IP Assessment and Plan Start: 07/07/18 15:48 Freq: NEEDED Status: Active Protocol: Document 07/09/18 11:10 SA (Rec: 07/09/18 11:18 SA [id number]) PT Summary Assessment and Plan Summary Assessment Summary Pt ready for d/c home this afternoon with present to assist. Able to manage stairs safely and ambulation with FWW. Frequency of Treatment Frequency Of Treatment Twice a Day Treatment Plan Physical Therapy Treatment Plan Bed Mobility Training Transfer Training Gait Training Therapeutic Exercise Balance Retraining Post Op Education Discharge Planning Hot or Cold Pack Recommendations To Nursing Amount of Assist Needed 1 Person Assist Discharge Recommendations PT Discharge Recommendations Home with Assistance Outpatient PT
== END 2018-07-09 13:22 | disposition home or self-care (01) ==
LOC: AC 15:07 → OR 07-09 14:14
PROVIDERS: Admitting Provider Physician Assistant; PCP Family Medicine; Visit Provider Orthopaedic Surgery
PROC: 0SRC0JZ Replacement of Right Knee Joint with Synthetic Substitute, Open Approach (ICD-10-PCS; CPT 27447; principal; 2018-07-07 07:45)
DX: M17.11 Unilateral primary osteoarthritis, right knee (principal)
CPT/HCPCS: 27447; 36415; 73560; 85014; 85018; 94760; 97110; 97116; 97162; 97530; C1776; G0378; C9290; J0690; J1100; J1170; J2250; J2405; J2704; J3010; J3370; J3410

== ENCOUNTER → 2021-03-23 14:00 | Outpatient (CLI) | payer MEDICARE, BC, SELFPAY ==
[2018-07-07 12:29] VITALS: BMI 35.9
--- NOTE | 2021-03-23 | DI.CT.S_ITS ---
PROCEDURE: CT UE RT WO CON INDICATIONS: Primary osteoarthritis, right shoulder TECHNIQUE: Noncontrast 1-1.5 mm thick sections acquired from the acromioclavicular joint to the inferior scapula, with coronal and sagittal reformatting. COMPARISON: [facility], CR, XR SHOULDER 2+ VIEWS BILATERAL, 12/14/2020, 11:19. FINDINGS: Image quality: Excellent. Bones: No acute fracture or dislocation. Severe degenerative changes are seen at the glenohumeral joint with full-thickness joint space narrowing, subchondral sclerosis and subchondral cystic changes, and marginal osteophytes. There is remodeling of the posterior glenoid resulting in approximately 15? of glenoid retroversion relative to the midplane of the scapula at the mid glenoid level. Mild to moderate acromioclavicular degenerative changes are noted. The remainder of the visualized scapula, clavicle and included right-sided ribs are intact. Soft tissues: There is a moderate glenohumeral joint effusion. Numerous small ossified loose bodies are seen in the glenohumeral joint, predominantly in the superior subscapularis recess and the axillary recess. No disproportionate atrophy of the rotator cuff musculature is seen. The articular cartilages, labrum, ligaments, and tendons are not well evaluated with CT. The included portions of the right lung are clear. IMPRESSION: 1. Severe glenohumeral osteoarthrosis with subchondral cystic changes, subchondral sclerosis, marginal osteophyte formation, and remodeling of the articular surfaces. There is approximately 15 degree glenoid retroversion relative to the midplane of the scapula at the mid glenoid level. 2. Moderate glenohumeral effusion with multiple ossified intra-articular loose bodies. 3. Mild to moderate acromioclavicular joint osteoarthrosis. Dictated by: Byron Ladd M.D. on 03/23/2021 at 15:47 Approved by: Byron Ladd M.D. on 03/23/2021 at 15:52
== END ==
PROVIDERS: PCP Family Medicine; Referring Provider Orthopaedic Surgery; Visit Provider Orthopaedic Surgery
DX: M19.011 Primary osteoarthritis, right shoulder (principal); M25.411 Effusion, right shoulder
CPT/HCPCS: 73200

== ENCOUNTER → 2021-05-21 10:03 | Outpatient (CLI) | payer MEDICARE, BC, SELFPAY ==
[2018-07-07 12:29] VITALS: BMI 35.9
[2021-05-21 11:21] LABS: Add Manual Diff / Slide Review NO; Basophils Absolute Auto 0 /uL (0-100); Basophils Percent Auto 1.1 % (0-2); Eosinophils Absolute Auto 0 /uL (0-450); Eosinophils Percent Auto 1.1 % (2-4); Hematocrit 42.2 % (36-46); Hemoglobin 14.2 g/dL (12.0-16.0); Lymphocytes Absolute Auto 1000 /uL (1100-4500); Lymphocytes Percent Auto 27.2 % (25-40); Mean Corpuscular HGB Conc 33.7 % (30-36); Mean Corpuscular Hemoglobin 28.7 PG (26-34); Mean Corpuscular Volume 85.2 fL (80-100); Monocytes Absolute Auto 300 /uL (0-900); Monocytes Percent Auto 8.9 % (3-14); Neutrophils Absolute Auto 2300 /uL (1500-7000); Neutrophils Percent Auto 61.7 % (50-75); Platelet Count 193 X10^3/uL (150-400); Red Blood Cell Count 4.95 X10^6/uL (4.0-5.2); Red Cell Distribution Width 15.1 % (11.6-14.8); White Blood Cell Count 3.7 X10^3/uL (4.5-11.0)
[2021-05-21 11:31] LABS: Hemoglobin A1C% w Est Avg Glu 5.3 % (4.0-6.0)
[2021-05-21 11:50] LABS: BUN Creatinine Ratio 20.6 (6-22); Blood Urea Nitrogen 13 mg/dL (7-17); Calcium 9.7 mg/dL (8.4-10.2); Carbon Dioxide 30 mmol/L (22-32); Chloride 104 mmol/L (98-107); Estimated Glomerular Filt Rate > 60.0 mL/min (>60); Glucose 92 mg/dL (80-110); HEMOLYSIS < 15 (0-50); Potassium 3.9 mmol/L (3.4-5.1); Sodium 138 mmol/L (137-145)
[2021-05-21 12:03] LABS: Appearance Urine UA CLOUDY; Bilirubin Urine UA NEGATIVE (NEGATIVE); Color Urine UA YELLOW; Glucose Urine UA NEGATIVE (Negative); Ketones Urine UA NEGATIVE (NEGATIVE); Leukocyte Esterase Urine UA NEGATIVE (NEGATIVE); Nitrite Urine UA NEGATIVE (Negative); Occult Blood Urine UA NEGATIVE (Negative); Protein Urine UA NEGATIVE (Negative); Urobilinogen Urine UA 0.2 E.U./dL (0.2)
[2021-05-21 12:33] LABS: Bacteria Urine Many (>30); Culture Indicated Urine Cult Not Indicated; RBC Urine None Seen (0-5/HPF); Squamous Epithelial Cell Urine 5-10 /HPF (0-5/HPF); WBC Urine None Seen (0-5/HPF)
== END ==
PROVIDERS: PCP Family Medicine; Referring Provider Orthopaedic Surgery; Visit Provider Orthopaedic Surgery
DX: Z01.818 Encounter for other preprocedural examination (principal); R73.9 Hyperglycemia, unspecified; Z01.812 Encounter for preprocedural laboratory examination
CPT/HCPCS: 36415; 80048; 81001; 83036; 85025; 93005; 93010

== ENCOUNTER → 2021-09-17 12:22 | Outpatient (CLI) | payer MEDICARE, BC, SELFPAY ==
[2018-07-07 12:29] VITALS: BMI 35.9
[2021-09-17 13:02] LABS: Add Manual Diff / Slide Review NO; Basophils Absolute Auto 0 /uL (0-100); Basophils Percent Auto 0.8 % (0-2); Eosinophils Absolute Auto 0 /uL (0-450); Eosinophils Percent Auto 0.2 % (2-4); Hematocrit 40.8 % (36-46); Hemoglobin 14.1 g/dL (12.0-16.0); Lymphocytes Absolute Auto 1100 /uL (1100-4500); Lymphocytes Percent Auto 24.9 % (25-40); Mean Corpuscular HGB Conc 34.5 % (30-36); Mean Corpuscular Hemoglobin 29.5 PG (26-34); Mean Corpuscular Volume 85.5 fL (80-100); Monocytes Absolute Auto 400 /uL (0-900); Monocytes Percent Auto 9.8 % (3-14); Neutrophils Absolute Auto 2800 /uL (1500-7000); Neutrophils Percent Auto 64.3 % (50-75); Platelet Count 166 X10^3/uL (150-400); Red Blood Cell Count 4.77 X10^6/uL (4.0-5.2); Red Cell Distribution Width 15.7 % (11.6-14.8); White Blood Cell Count 4.3 X10^3/uL (4.5-11.0)
[2021-09-17 13:21] LABS: BUN Creatinine Ratio 21.7 (6-22); Blood Urea Nitrogen 13 mg/dL (7-17); Calcium 9.1 mg/dL (8.4-10.2); Carbon Dioxide 28 mmol/L (22-32); Chloride 106 mmol/L (98-107); Estimated Glomerular Filt Rate > 60 mL/min (>60); Glucose 100 mg/dL (80-110); HEMOLYSIS < 15 (0-50); Potassium 4.1 mmol/L (3.4-5.1); Sodium 139 mmol/L (137-145)
== END ==
PROVIDERS: PCP Family Medicine; Referring Provider Orthopaedic Surgery; Visit Provider Orthopaedic Surgery
DX: Z01.812 Encounter for preprocedural laboratory examination (principal); M25.512 Pain in left shoulder
CPT/HCPCS: 36415; 80048; 85025

== ENCOUNTER → 2021-09-24 10:54 | Outpatient (CLI) | payer MEDICARE, BC, SELFPAY ==
[2018-07-07 12:29] VITALS: BMI 35.9
[2021-09-24 12:51] LABS: COVID19 -Nasal RAPID Negative (Negative)
== END ==
PROVIDERS: PCP Family Medicine; Referring Provider Orthopaedic Surgery; Visit Provider Orthopaedic Surgery
DX: Z20.822 Contact with and (suspected) exposure to COVID-19 (principal)
CPT/HCPCS: 87635; C9803

== ENCOUNTER 2021-09-26 13:03 | Day surgery (SDC) | payer MEDICARE, BC, SELFPAY ==
[2018-07-07 12:29] VITALS: BMI 35.9
[2021-09-19 12:55] VITALS: BMI 36.2
[2021-09-26] VITALS (11 sets, daily range): BP systolic 123–156; BP diastolic 63–98; PULSE 79–99; RESP 13–18; TEMP 35.8–37; O2SAT 92–98; BMI 36.2
--- NOTE | 2021-09-26 07:30 | DI.RAD.S_ITS ---
PROCEDURE: XR SHOULDER RT 1V INDICATIONS: post op total shoulder TECHNIQUE: 1 views of the shoulder were acquired. COMPARISON: None. FINDINGS: Expected postoperative changes are present with shoulder arthroplasty. Hardware is intact with good anatomic alignment. Postoperative soft tissue structures are noted. Visualized portions of the right lung are within normal limits. IMPRESSION: Right shoulder arthroplasty with expected postoperative change. Dictated by: Isabel Galvez M.D. on 09/26/2021 at 17:56 Approved by: Isabel Galvez M.D. on 09/26/2021 at 17:57
[2021-09-26] MEDS: PREGABALIN 75 MG CAPSULE PO (13:50)
[2021-09-26] MEDS: ACETAMINOPHEN 325 MG TABLET 975 MG PO (13:50)
[2021-09-26] MEDS: CELECOXIB 200 MG CAPSULE PO (13:50)
[2021-09-26] MEDS: LACTATED RINGERS 1,000 ML 84 ML IV ×2 (14:11→16:36)
--- NOTE | 2021-09-26 14:23 | PM.PREOP ---
Pre-operative Note COVID-19 COVID-19 status: Negative Result date/Date tested (Pos, Neg/Pending): 09/24/21 Interval Note History & Physical reviewed/Exam performed by Physician: Yes Changes to H&P: No
[2021-09-26] MEDS: FAMOTIDINE 20 MG/2 ML VIAL IV (15:04)
--- NOTE | 2021-09-26 15:16 | SUR.PREOP ---
09/10/[id number]-Kmcypgnyrt at bedside. consent/time out done. on monitor. oxygen at 2l nasal canula. sedated with versed by Anesthesia. 1445-block started. vss. monitor vs q5 minutes. patient relaxed and cooperative . tolerating well. 1458-block completed. pictures to chart,along w/record of vital signs. patient remains wide awake and responsive. Rt arm beginning to feel heavy. 1505-off oxygen/monitors. To OR with ROLLING MILL OPERATOR.
[2021-09-26] MEDS: CEFAZOLIN 2 GM/20 ML SYRINGE IV (15:28)
[2021-09-26] MEDS: TRANEXAMIC ACID 1,000 MG VIAL 1000 MG INJ (15:30)
[2021-09-26] MEDS: THROMBIN (RECOMBINANT) 5,000 UNIT VIAL 5000 UNIT TOP (15:46)
[2021-09-26] MEDS: BUPIVACAINE 0.5% (PF) 30 ML, EPINEPHrine 0.15 MG INJ (15:47)
--- NOTE | 2021-09-26 15:50 | SUR.OPER ---
Beach chair with Broderick/Yessenia shoulder positioner. Lower body on padded OR bed. Head in foam padded head cradle, secured with straps. Non-operative arm secured <90 degrees abduction. Pillow under knees. Safety belt at thigh. Cloth tape over blanket over lower legs. POSITION APPROVED BY SURGEON AND ANESTHESIA
--- NOTE | 2021-09-26 17:16 | PM.OP.1 ---
Operative Date/Time/Diagnoses Date of procedure: 09/26/21 Time of procedure: 17:16 Pre-op diagnosis: Right shoulder osteoarthritis Post-op diagnosis: same Procedure & Clinicians Procedure: Right total shoulder Same procedure as scheduled: Yes Indications: The patient has had progressively worsening right shoulder pain with radiographic changes consistent with arthritis. Non-operative management has failed and the patient has requested total shoulder replacement. The risks, benefits and alternatives to surgery were discussed with the patient prior to proceeding. Risks discussed included, but were not limited to, failure to relieve pain, stiffness, infection, nerve damage, deep venous thrombosis, pulmonary embolism, stroke, coma, heart attack, permanent paralysis and , as well as the potential need for eventual revision of the prosthetic. Surgeon: Saul Gramajo Drilling Fluids Specialist: Jon Taylor Click Yes if Unassisted: No Anesthesia Type: General, Peripheral nerve block and Local Operative Notes Findings: End-stage osteoarthritis of the right shoulder with multiple loose bodies. Closure Type: primary Specimen(s): none sent Prosthetic devices, grafts, tissues, transplants, or devices: Implants used in this procedure manufactured by the [employer] and included a canal sparing total shoulder replacement with a 42 mm all polyethylene pegged E +glenoid, a 42 mm x 16 mm neutral humeral head and a size 2 canal sparing stem. Applied: implant(s) Estimated Blood Loss (mL): 200 Blood products transfused: none Procedure in detail: The patient was seen in the pre-operative area, where the patient identified the right shoulder as the operative site and this was marked with my initials. The patient received pre-operative antibiotics, underwent an interscalene block, and was taken to the operating room and placed on the operative table in the supine position. After satisfactory anesthesia, a full ?time out? was performed. The patient was repositioned in the ?beach chair? position using a dedicated positioner. All pressure points were well padded, and the knees were slightly bent to prevent tension on the sciatic nerves. The right arm was prepared from the fingers to the base of the neck with ChloroPrep in the usual fashion and draped through sterile drapes. An approximately 15 cm incision was created, starting at the clavicle above the coracoid process and extended towards the deltoid insertion. The deltopectoral interval was used to access the shoulder. The cephalic vein was taken medially. A self retaining retractor was placed. The ?three sisters? were identified and cauterized. The axillary nerve was palpated and protected throughout the case. The biceps was released from its groove and tenodesed over the top of the pectoralis major tendon. The subscapularis was released from the lesser tuberosity with a subscapularis peel and tagged for later repair. The shoulder was dislocated and a cutting guide was used for the proximal humeral osteotomy in 30 degrees of retroversion. The head was sized using the humeral heads and a guide placed. The collar Reamer was then used. The 2. Broach was placed. A proximal humeral protector was then placed. We then removed the self-retaining retractor and placed retractors to access the glenoid. The subscapularis was released with a ?360 degree release? with care being taken to protect the axillary nerve with the inferior portion of this procedure. Multiple loose bodies were delivered from the subscapularis recess during this part of the procedure. The remnant of labrum and biceps stump were removed. The appropriate size reamer was chosen with the glenoid sizer, and the guide pin placed. The glenoid was appropriately reamed. The guide for the peripheral holes was used and the center hole enlarged. The trial glenoid was placed with good stability. We then cemented the final implant into place after irrigating the peg holes and drying them with thrombin-soaked Gelfoam. We returned our attention to the humerus, a trial humeral head was applied and a trial reduction performed. Stability was checked with 50% posterior translation with spontaneous reduction, 45? external rotation the side with the subscapularis held in the repaired position and 70? internal rotation in the ?scare cowlitz position?. This was felt to be satisfactory and the appropriate implants were opened. Four holes were drilled along the humeral osteotomy and #2 Ethibond sutures placed for eventual subscapularis repair. The sutures were led through the outer ring of the short stem. The humeral prosthetic was impacted into the humerus. The humeral head was applied when the stem was still slightly proud and impacted to both seat the head and fully seat the stem. The joint was relocated one final time. The joint was irrigated and the subscapularis repaired to the previously placed sutures using Dionicio-Jaden sutures. The top of the subscapularis was closed to the leading edge of the supraspinatus with a figure of 8 #2 Ethibond to close the rotator interval. The deltopectoral interval was closed with interrupted 0 Vicryl. The subcutaneous layer was closed with 3-0 Vicryl, and the skin with a running 3-0 V-Lock suture and Dermabond. An Aquacel Ag dressing was applied, the patient?s arm was placed in a sling, and the patient was taken to recovery having tolerated the procedure well. Complications: none Post-operative Condition: stable Disposition: PACU Plan for aftercare: Patient will be allowed to do pendulum exercises in used there and hand in front of the body below shoulder level. There will likely be discharged home tomorrow.
--- NOTE | 2021-09-26 19:07 | PC.NURSE ---
pt arrived in room 1830. denied pain. Rt. shoulder numb, can wiggle fingers. radial pulse palpable. call light in reach. bed alarm active
[2021-09-26] MEDS: LACTATED RINGERS 1,000 ML 100 ML IV (19:21)
[2021-09-26] MEDS: ACETAMINOPHEN 325 MG TABLET 650 MG PO (19:22)
[2021-09-26] MEDS: IBUPROFEN 400 MG TABLET PO (20:31)
[2021-09-26] MEDS: DOCUSATE 100 MG CAPSULE PO (20:31)
[2021-09-26] MEDS: ASPIRIN EC 81 MG TABLET PO (20:31)
[2021-09-26] MEDS: HYDROMORPHONE 2 MG TABLET PO (22:39)
[2021-09-27 00:46] VITALS: BP 133/79; PULSE 88; RESP 18; TEMP 36.1; O2SAT 93
[2021-09-27 02:50] LABS: Hematocrit 38.5 % (36-46); Hemoglobin 12.8 g/dL (12.0-16.0)
[2021-09-27 04:29] VITALS: BP 119/68; PULSE 87; RESP 17; TEMP 36.5; O2SAT 92
[2021-09-27] MEDS: PANTOPRAZOLE DR 40 MG TABLET PO (06:29)
--- NOTE | 2021-09-27 07:43 | PM.DS.1 ---
History of Present Illness History of Present Illness Date Patient Seen: 09/27/21 Time Patient Seen: 07:43 Chief complaint: RT TSA *OPB* Narrative: The history and physical is contained in the chart in a previously completed note. Please refer to that note for this information. Discharge Providers Provider Date of admission: September 26, 2021 Discharge Date: 09/27/21 Primary care physician: Lexx Woodward DO Consults: 09/26/21 18:14 Consult to Physical Therapy Evaluate & Treat Comment: Physician Instructions: Pendulums, PROM 90 FF, 0 ER, 0 Abd, IR to body Discharge provider: Saul Gramajo MD Summary Hospital Course Discharge Diagnosis: Right shoulder osteoarthritis Hospital Course: The patient was admitted to the hospital and taken directly to the operating room on September 26, 2021. She underwent a right canal sparing total shoulder replacement without complications. On postoperative day 1 she remained quite comfortable although the block had still not worn off. She had been able to ambulate and was ready for discharge home. Status at Discharge Cognitive/behavioral status at discharge: at baseline, oriented Functional status at discharge: independent ambulation Overall status at discharge: patient is progressing back to baseline Time Spent with Patient Time spent: Less than 30 minutes Exam Vital Signs (past 8 hours): - 09/27/21 00:46 09/27/21 04:29 Temperature 97.0 F L 97.7 F Pulse Rate 88 87 Respiratory Rate 18 17 Blood Pressure 133/79 119/68 Pulse Oximetry 93 92 Oxygen Flow Rate 2 2 Oxygen Delivery Method Room Air Oxygen Flow Rate 2 Narrative Exam Narrative: Right upper extremity wound is dressed with no drainage on the bandage. Light touch is reduced throughout the right upper extremity. She has minimal motion in her hand and can flex her fingers but cannot extend them or move her thumb. Objective Labs Result Diagrams: 09/27/21 02:38 Labs: Laboratory Results - last 24 hr 09/27/21 02:38 Hgb 12.8 Hct 38.5 PFSH Medical History Alopecia Anesthesia BCC (basal cell carcinoma) Dermatitis Diverticulitis (~03/2016) Former smoker GERD (gastroesophageal reflux disease) Headache, migraine Hemorrhoids Hepatitis A (~1979) Hip pain, right History of bronchitis History of Mohs micrographic surgery for skin cancer (06/2021) Hyperlipidemia Hyponatremia Infertility Knee pain, right Low back pain Menopausal and postmenopausal disorder Nondisplaced fracture of right tibial tuberosity Osteoarthritis Palpitations Pneumonia (~07/04/16) SCC (squamous cell carcinoma) Uvulitis (06/05/21) Vaginitis Vitamin D deficiency Surgical History History of arthroplasty of left knee History of arthroplasty of right knee (07/07/18) History of bilateral carpal tunnel release History of incision and drainage Hx of appendectomy Hx of arthroscopy of left knee Hx of hemorrhoidectomy (~2012) Social History household members: spouse Smoking Status: Former smoker alcohol intake: current Discharge Assessment & Plan Assessment and Plan Assessment: Stable postop day 1 status post right total shoulder replacement. She is very comfortable however the block remains partially in place. She is ready for discharge home later in the morning. Plan of Treatment: Discharge today. Discharge prescriptions for oxycodone have been called to her pharmacy. She has been instructed in the use of Tylenol and ibuprofen for additional pain control and in the use of aspirin for DVT prophylaxis. She has been instructed in her activity restrictions. She will follow up at my office in 10-14 days. Discharge Plan Discharge Plan Patient Disposition: Home Discharge orders & Medications Discharge Orders: Discharge (Order); Ordered 09/27/21 Ordered By: Saul Gramajo Prescriptions: New acetaminophen 325 mg Tablet 650 mg PO Q6HR Qty: 120 0RF aspirin 81 mg Tablet,Delayed Release (Dr/Ec) 81 mg PO BID Qty: 84 0RF ibuprofen 400 mg Tablet 400 mg PO Q4HR Qty: 200 0RF oxycodone 5 mg Tablet 5 mg PO Q4H PRN (Reason: Pain, Moderate (4-6)) Qty: 40 0RF Continued atorvastatin 20 mg Tablet 20 mg PO Q OTHER DAY omeprazole 40 mg DAILY hydrocortisone [Proctozone-HC] 2.5 % Cream With Perineal Applicator 1 applic NH QD-BID PRN (Reason: Hemorrhoids) [id number]-[id number] [Fiorinal-Codeine #3] 84-93-170-40 mg Capsule 1 cap PO Q6H PRN (Reason: Severe Headache) sumatriptan succinate [Imitrex] 50 mg Tablet 25 - 50 mg PO SEEINSTR PRN (Reason: Migraine Headache) Rx Instructions: May repeat in 2 hours, maximum 2 tabs in 24 hours sumatriptan succinate [Imitrex STATdose Pen] 6 mg/0.5 mL Pen Injector 6 mg subcut SEEINSTR PRN (Reason: Migraines) Rx Instructions: May repeat in 1 hour, not over 2 doses in 24 hours cholecalciferol (vitamin D3) [Vitamin D3] 1,000 unit Capsule 1,000 unit PO DAILY Premarin 0.625 mg/gram Cream 0.5 applic VAGINAL SEEINSTR Rx Instructions: 2x/week Sleep Aid (doxylamine) 25 mg Tablet 12.5 mg PO BEDTIME PRN (Reason: Insomnia) nystatin-triamcinolone 100,000-0.1 unit/g-% Cream 1 applic TOPICAL BID PRN (Reason: Rash) Label Comments: upper thigh and breast left Follow up/Referrals: Saul Gramajo MD [Physician] - 2 Weeks Lexx Woodward DO [Primary Care Provider] - Diet/Activity/Treatments Diet: Diet as Tolerated and Regular Activity: You may use your right arm in front of your body below shoulder level. Cold/Heat Therapy: Apply ice to the right shoulder for 15 minutes every hour as needed for pain control. Skin/Wound/Dressing Care Report to your healthcare provider any signs of infection, such as:: chills, fever, night sweats, increased pain, unusual drainage and unusual redness Dressing: Leave the dressing intact until your postoperative follow-up. You may shower with the dressing in place. If the central strip of the dressing becomes saturated with either water or blood, please call the office to have it evaluated. Visit Report/Discharge Packet Instructions: DI for Shoulder Replacement Stand Alone Forms: Surgery Discharge Discharge Data Primary Care Provider: Lexx Woodward Attending Provider: Saul Gramajo
[2021-09-27] MEDS: CHOLECALCIFEROL (VITAMIN D3) 1,000 UNIT TABLET 1000 UNIT PO (08:02)
[2021-09-27] MEDS: IBUPROFEN 400 MG TABLET PO (08:02)
[2021-09-27] MEDS: ATORVASTATIN 20 MG TABLET PO (08:02)
[2021-09-27] MEDS: ASPIRIN EC 81 MG TABLET PO (08:02)
[2021-09-27 08:11] VITALS: BP 109/60; PULSE 73; RESP 17; TEMP 36; O2SAT 94
[2021-09-27] MEDS: SUMAtriptan 6 MG/0.5 ML VIAL SUBCUT (09:08)
--- NOTE | 2021-09-27 10:30 | PT.IIE ---
Current Diagnoses Primary osteoarthritis, right shoulder (09/26/21) Surgery Performed Operation Date: 09/26/21 14:45 Actual Procedures p Total Shoulder Arthroplasty(Right) - Saul Gramajo MD Surgical History (Last Reviewed 09/26/21 @ 13:11 by Kiley Butt, RN) History of arthroplasty of left knee History of arthroplasty of right knee (07/07/18) History of bilateral carpal tunnel release History of incision and drainage Hx of appendectomy Hx of arthroscopy of left knee Hx of hemorrhoidectomy (~2012) Medical History (Last Reviewed 09/26/21 @ 13:11 by Kiley Butt, DARRIN) Alopecia Anesthesia BCC (basal cell carcinoma) Dermatitis Diverticulitis (~03/2016) Former smoker GERD (gastroesophageal reflux disease) Headache, migraine Hemorrhoids Hepatitis A (~1979) Hip pain, right History of bronchitis History of Mohs micrographic surgery for skin cancer (06/2021) Hyperlipidemia Hyponatremia Infertility Knee pain, right Low back pain Menopausal and postmenopausal disorder Nondisplaced fracture of right tibial tuberosity Osteoarthritis Palpitations Pneumonia (~07/04/16) SCC (squamous cell carcinoma) Uvulitis (06/05/21) Vaginitis Vitamin D deficiency Physical Therapy Inpatient Evaluation/Re-Eval M1 PT/OT-IP Prior Functional Status Start: 09/27/21 13:05 Freq: NEEDED Status: Active Protocol: Document 09/27/21 10:30 AB (Rec: 09/27/21 14:12 AB [id number]) Medical Review Prior Functional Status Medical History Reviewed Yes Communication able to make needs known Mobility and Gait pt stated that she is independent with all mobilities and ambulation without AD Social History Household Members spouse Living Arrangements House Number of Floors (Floors) Two Floors Number of Stairs To Enter/Railing? pt stayson mail level of the house 13 steps B rails to enter the house Home Environment Standard Height Toilet,Walk in Shower,Bidet Home Equipment Raised Toilet Seat Without Armrests,Shower Seat without Backrest,Hand Held Shower Additional Social History Comment will have her spouse to assist her; stated that her sister also will assist pt stated that she has R side bed cane M2 PT-IP Current Condition Start: 09/27/21 13:05 Freq: NEEDED Status: Active Protocol: Document 09/27/21 10:30 AB (Rec: 09/27/21 14:12 AB [id number]) Physical Therapy Current Condition Current Condition Evaluation Date 09/27/21 Treatment Diagnosis s/p R TSA; difficulty in walking Onset Date 09/26/21 M3 PT-IP Subjective Start: 09/27/21 13:05 Freq: NEEDED Status: Active Protocol: Document 09/27/21 10:30 AB (Rec: 09/27/21 14:12 AB [email or web address]) Subjective Physical Therapy Visit Type Type Initial Evaluation Visit Start Time 10:30 Visit Stop Time 11:15 Total Visit Minutes 45 Number of FLIGHT SURGEON Visits 0 Physical Therapy Visit Comments Patient Comments agreeable to do PT Therapy Pain Assessment Pain Present Pain Present Denied Pain M4 PT-IP Mobility and Gait Start: 09/27/21 13:05 Freq: NEEDED Status: Active Protocol: Document 09/27/21 10:30 AB (Rec: 09/27/21 14:12 AB [id number]) PT-Bed Mobility Assessment Supine to Sit Supine to Sit Standby Assistance PT-Transfer Assessment Sit to and From Stand Sit to and from Stand Standby Assistance,1 Person Assistance,Use of Upper Extremities Equipment Transfer Assistive Device None,Gait Belt Orthotic/Prosthetic Devices or Brace: Yes Transfers Transfer Destination Bed Transfer Technique ambulated Transfer Ability Level of Assist Standby Assistance Comments Mobility Comments educated on shoulder precautions, weight bearing restrictions and sling management. completed supine to sit SBA using bed rail. able to sit on EOB SBA. educated on sling management. stated that she will just inform her sister on how to do the sling. refused caregiver training. completed PROM on R elbow (motor control not fully back yet as pt had a late surgery yesterday) and R hand. educated on pendulum but not completed by pt due to decrease motor control on RUE . completed sit to stand SBA and ambulated in room SBA ~ 30 ft. sat on chair and rested. agreed to do stairs. ambulated without AD SBA ~ 150 ft. completed up/down step using L rail SBA. completed x 2 sets. ambulated back to her room SBA. agreed to sit on the chair. positioned. call light and table placed within reach. Gait Assessment Gait Gait Assistance Required: Standby Assistance Distance (Feet) 150 Able to Maintain Weight Bearing Status Yes During Gait Assistive Devices Assistive Device Gait Belt Orthotic/Prosthetic Devices or Brace: Yes Gait Deviations General Gait Pattern Decreased Stride Length, Decreased Feet Clearance,Wide Based Gait Factors Limiting Gait Function Factors Limiting Gait Function Decreased Activity Tolerance, Decreased Sensation,Decreased Strength,Limited Range of Motion,Poor Balance,Poor Safety Awareness Stair Climbing Assessment Evaluation Level of Assist On Stairs Standby Assistance Devices Stair Climbing Assistive Devices Left Railing Technique/Endurance Stair Climbing Direction Ascend and Descend Stair Climbing Technique Step to Step Number of Steps Climbed 3 Query Text: Stair Climbing Set # Repetitions (reps) 2 PT-Balance Assessment Sitting Balance and Reactions Static Sitting Balance Ability Normal Dynamic Sitting Balance Ability Good Standing Balance and Reactions Static Standing Balance Ability Good Dynamic Standing Balance Ability Good Device Used without AD M5 PT-IP Objective Assessments Start: 09/27/21 13:05 Freq: NEEDED Status: Active Protocol: Document 09/27/21 10:30 AB (Rec: 09/27/21 14:12 AB [email or web address]) Orientation Orientation/Cognition Level of Alertness Alert Orientation Name,Place,Situation Language Function Ability No Deficits Noted Safety Awareness Understands Safety Issues Memory Description No Deficits Noted Gross Range of Motion Lower Extremity ROM Assessment Within Functional Limits Strength Lower Extremity Strength Assessment Within Functional Limits Sensation Assessment Sensation Gross Sensation Right UE Impaired Light Touch Impaired Proprioception (Position) Impaired Sensation Description Numbness M6 PT-IP Treatment Start: 09/27/21 13:05 Freq: NEEDED Status: Active Protocol: Document 09/27/21 10:30 AB (Rec: 09/27/21 14:12 AB [email or web address]) Physical Therapy Treatment Education Education Provided Precautions,Weight Bearing Status,Post-Op Packet,Safety M7 PT-IP Assessment and Plan Start: 09/27/21 13:05 Freq: NEEDED Status: Active Protocol: Document 09/27/21 10:30 AB (Rec: 09/27/21 14:12 AB [email or web address]) PT Summary Assessment and Plan Potential Rehabilitation Potential Fair Status of Condition at Evaluation Evolving Summary Impairments Pain,ROM,Strength,Balance, Coordination,Sensation,Tone, Cognition,Bed Mobility, Transfers,Gait,Activity Tolerance Assessment Summary pt requiring SBA with mobility and plans to go home with spouse and sister to assist her. pt may go home when medically stable. Goals Bed Mobility Goal Independent Transfer Goal Independent Gait Goal Independent Gait Distance 300 Other Goals up/down 13 steps 1 rail mod I Days to Meet Goals 5 Frequency of Treatment Frequency Of Treatment Twice a Day Treatment Plan Physical Therapy Treatment Plan Bed Mobility Training,Transfer Training,Gait Training, Therapeutic Exercise,Balance Retraining,Post Op Education, Discharge Planning,Hot or Cold Pack,Neuromuscular Re-ed, Coordination Retraining,Manual Therapy Precautions Shoulder Precautions Sling,PROM,Internal Rotation to Body,No External Rotation, No Abduction,Forward Flexion to 90 degrees,Pendulums Weight Bearing Status Weight Bearing Status Non-Weight Bearing Allowed Weight Bearing Amount (enter % RUE NWB or #) (%) Recommendations To Nursing Amount of Assist Needed Standby Assistance Discharge Recommendations PT Discharge Recommendations Home with Assistance, Outpatient PT Transportation Needs at Discharge Private Vehicle
[2021-09-27] MEDS: ACETAMINOPHEN 325 MG TABLET 650 MG PO (11:26)
[2021-09-27] MEDS: OXYCODONE IR 10 MG TABLET PO (11:28)
== END 2021-09-27 11:43 | disposition home or self-care (01) ==
LOC: OR 13:07 → AC 13:07
PROVIDERS: PCP Family Medicine; Referring Provider Orthopaedic Surgery; Visit Provider Orthopaedic Surgery
PROC: 0RQJ0ZZ Repair Right Shoulder Joint, Open Approach (ICD-10-PCS; CPT 23472; principal; 2021-09-26 14:45)
DX: M19.011 Primary osteoarthritis, right shoulder (principal); E66.9 Obesity, unspecified; K21.9 Gastro-esophageal reflux disease without esophagitis; I49.3 Ventricular premature depolarization; E78.5 Hyperlipidemia, unspecified; Z68.36 Body mass index [BMI] 36.0-36.9, adult; Z87.891 Personal history of nicotine dependence
CPT/HCPCS: 23472; 64450; 73020; 85014; 85018; 97162; 97530; C1776; J0171; J0690; J2250; J3010; J3030

== ENCOUNTER → 2023-01-24 09:29 | Outpatient (CLI) | payer MEDICARE, BC, SELFPAY ==
[2021-09-26 13:13] VITALS: BMI 36.2
== END ==
PROVIDERS: PCP Family Medicine; Referring Provider Dermatology; Visit Provider Physician Assistant
DX: T81.89XA Other complications of procedures, not elsewhere classified, initial encounter (principal); S81.802A Unspecified open wound, left lower leg, initial encounter; Z87.891 Personal history of nicotine dependence
CPT/HCPCS: 11042; 99204; 99213

== ENCOUNTER → 2023-01-29 08:42 | Outpatient (CLI) | payer MEDICARE, BC, SELFPAY ==
[2021-09-26 13:13] VITALS: BMI 36.2
== END ==
PROVIDERS: PCP Family Medicine; Referring Provider Dermatology; Visit Provider Surgery
DX: T81.89XA Other complications of procedures, not elsewhere classified, initial encounter (principal); S81.802A Unspecified open wound, left lower leg, initial encounter
CPT/HCPCS: 97607

== ENCOUNTER → 2023-01-31 10:47 | Outpatient (CLI) | payer MEDICARE, BC, SELFPAY ==
[2021-09-26 13:13] VITALS: BMI 36.2
== END ==
PROVIDERS: PCP Family Medicine; Referring Provider Dermatology; Visit Provider Surgery
DX: T81.31XA Disruption of external operation (surgical) wound, not elsewhere classified, initial encounter (principal); S81.802A Unspecified open wound, left lower leg, initial encounter; L53.9 Erythematous condition, unspecified
CPT/HCPCS: 11042; 97607; 99214

== ENCOUNTER → 2023-02-07 14:08 | Outpatient (CLI) | payer MEDICARE, BC, SELFPAY ==
[2021-09-26 13:13] VITALS: BMI 36.2
== END ==
PROVIDERS: PCP Family Medicine; Referring Provider Dermatology; Visit Provider Physician Assistant
DX: T81.89XA Other complications of procedures, not elsewhere classified, initial encounter (principal); S81.802A Unspecified open wound, left lower leg, initial encounter; L53.9 Erythematous condition, unspecified; M79.605 Pain in left leg
CPT/HCPCS: 11042

== ENCOUNTER → 2023-02-14 10:45 | Outpatient (CLI) | payer MEDICARE, BC, SELFPAY ==
[2021-09-26 13:13] VITALS: BMI 36.2
== END ==
PROVIDERS: PCP Family Medicine; Referring Provider Dermatology; Visit Provider Physician Assistant
DX: T81.31XA Disruption of external operation (surgical) wound, not elsewhere classified, initial encounter (principal); S81.802A Unspecified open wound, left lower leg, initial encounter; E78.5 Hyperlipidemia, unspecified
CPT/HCPCS: 11042; 87070; 87075; 87077; 87186; 87205; 99213

== ENCOUNTER → 2023-02-21 14:39 | Outpatient (CLI) | payer MEDICARE, BC, SELFPAY ==
[2021-09-26 13:13] VITALS: BMI 36.2
== END ==
PROVIDERS: PCP Family Medicine; Referring Provider Dermatology; Visit Provider Surgery
DX: T81.31XD Disruption of external operation (surgical) wound, not elsewhere classified, subsequent encounter (principal); I87.2 Venous insufficiency (chronic) (peripheral)
CPT/HCPCS: 11042; 99213

== ENCOUNTER → 2023-03-06 09:06 | Outpatient (CLI) | payer MEDICARE, BC, SELFPAY ==
[2021-09-26 13:13] VITALS: BMI 36.2
== END ==
PROVIDERS: PCP Family Medicine; Referring Provider Dermatology; Visit Provider Surgery
DX: T81.31XA Disruption of external operation (surgical) wound, not elsewhere classified, initial encounter (principal); S81.802A Unspecified open wound, left lower leg, initial encounter; I87.2 Venous insufficiency (chronic) (peripheral)
CPT/HCPCS: 11042; 99213

== ENCOUNTER → 2023-03-11 14:08 | Outpatient (CLI) | payer MEDICARE, BC, SELFPAY ==
[2021-09-26 13:13] VITALS: BMI 36.2
== END ==
PROVIDERS: PCP Family Medicine; Referring Provider Dermatology; Visit Provider Surgery
DX: T81.31XD Disruption of external operation (surgical) wound, not elsewhere classified, subsequent encounter (principal); I87.2 Venous insufficiency (chronic) (peripheral)
CPT/HCPCS: 99213

== ENCOUNTER → 2024-12-09 10:44 | Outpatient (CLI) | payer MEDICARE, BC, SELFPAY ==
[2021-09-26 13:13] VITALS: BMI 36.2
== END ==
LOC: PHYS 10:46
PROVIDERS: PCP Family Medicine; Referring Provider Orthopaedic Surgery; Visit Provider Orthopaedic Surgery
DX: G56.21 Lesion of ulnar nerve, right upper limb (principal)
CPT/HCPCS: 95885; 95886; 95912